=== PATIENT | female | born 1960 | race Caucasian/White ===

== ENCOUNTER 2020-08-23 16:25 | Emergency (ER) | payer BC, MEDICAID, SELFPAY ==
[2020-08-23 16:28] VITALS: BP 156/80; PULSE 99; RESP 18; TEMP 36.6; O2SAT 97; BMI 33.3
--- NOTE | 2020-08-23 18:05 | EDS_ITS ---
HPI History of Present Illness Chief Complaint: Hypertension Informant: patient Narrative Narrative: Patient is a 59-year-old female with a past medical history of hypertension, anxiety who presents to the emergency department for elevated blood pressure reading. She states that she was at her mother's house and checked her blood pressure. Systolic was in the 200s. She states that she is under a lot of stress lately. Her mother was diagnosed with a hemorrhagic stroke 2 weeks ago and her son's wedding is tomorrow. She states that she did binge drink yesterday as well. She is denying any headache, chest pain. No vision changes or issues with speech. No weakness or loss of sensation in any extremity. She does feel mildly short of breath and some tingling in her hands. No leg swelling or calf pain. She denies any history of heart attack, stroke o r DVT/PE. Patient is on lisinopril, metoprolol and hydrochlorothiazide for her blood pressure. She does take Vistaril for her anxiousness as well. PFSH [facility] Medical History (Updated 08/23/20 @ 18:[address] Lewis Medrano DO) Anxiety GERD (gastroesophageal reflux disease) Hypertension Non-Hodgkin lymphoma in remission Home Medications hydrochlorothiazide 12.5 mg PO BID 08/23/20 [History Last Taken Unknown] hydroxyzine pamoate [Vistaril] 25 mg PO BID PRN 08/23/20 [History Last Taken Unknown] lisinopril 40 mg PO DAILY 08/23/20 [History Last Taken Unknown] metoprolol tartrate 50 mg PO BID 08/23/20 [History Last Taken Unknown] pantoprazole 40 mg PO DAILY 08/23/20 [History Last Taken Unknown] Surgical History (Updated 08/23/20 @ 17:49 by Indira Pitt) H/O bilateral hip replacements Social History Smoking Status: Never smoker ROS ROS ED Constitutional Constitutional ED: Denies chills or fever(s) Eyes Eyes: Denies change in vision ENT ENT ED: Denies epistaxis or rhinorrhea Cardiovascular Cardiovascular: Denies chest pain or palpitations Respiratory/Chest Respiratory/Chest: Reports dyspnea; Denies cough Gastrointestinal Gastrointestinal: Denies abdominal pain, diarrhea, nausea or vomiting Musculoskeletal Musculoskeletal: Denies back pain or neck pain Integumentary Denies rash Neurologic Neurologic: Denies dizziness, headache(s) or weakness EXAM Physical Exam Const Vital Signs: 08/23/20 16:28 08/23/20 17:48 Temperature 97.9 F Temperature Source Temporal Pulse Rate 99 Respiratory Rate 18 Respiratory Effort Normal Respiratory Pattern Normal Blood Pressure 156/80 H Blood Pressure Mean 105 Pulse Ox 97 Oxygen Delivery Method Room Air Positive well nourished and well developed General Appearance ED: well developed and NAD HEENT Reports normocephalic, head/scalp atraumatic and moist mucous membranes Eyes PERRL and EOMs intact bilaterally Neck supple Chest Wall inspection of chest normal Resp normal respiratory effort and clear to auscultation bilaterally Auscultation: Negative for rales, rhonchi or wheezes Cardio regular rate and regular rhythm Heart Sounds: murmur GI normal to inspection, nondistended, normoactive bowel sounds and non-tender Palpation: soft; Negative for guarding or rebound tenderness present Extremity normal to inspection General Extremety ED: Negative for edema or tenderness General Extremity: Negative for edema Neuro oriented x3, CN's II-XII intact bilaterally and no sensory deficits noted Sensorium / Orientation: alert Motor Exam: strength 5/5 throughout Psych mental status grossly normal Psych Narrative: Anxiousness Skin no rashes or lesions noted MDM MDM MDM Narrative Medical decision making narrative: Patient presents to the ED for elevated blood pressure. Patient brought back to the room and her blood pressure was in the 130s over 90s. She is in no acute distress. She states that she is under a lot of stress. I believe that this is most likely situational given her son's wedding tomorrow, she did drink a lot of alcohol yesterday and her mom did suffer a hemorrhagic stroke 2 weeks ago. I do not feel any change in her medication is currently required as this is most likely situational and she will need to follow-up with her PCP for reevaluation. She develops any significant symptoms including any headache, vision changes, focal deficit, significant chest pain or shortness of breath she is to return to the ED. I did offer her something for anxiety but she states she will take her Vistaril. She her vital signs otherwise have been stable and she is satting well on room air. Lung sounds were clear on exam. This time will discharge home in stable condition. She understands and is agreeable this plan. Discharge Plan Triage Chief Complaint: Hypertension ED Provider: Lewis Medrano Dx/Rx/DC Orders Clinical Impression: Elevated blood pressure reading, Anxiousness Instructions: ED Anxiety Reaction, ED Hypertension, Established Prescriptions: No Action hydrochlorothiazide 12.5 mg Tablet 12.5 mg PO BID RF: 0 pantoprazole 40 mg Tablet,Delayed Release (Dr/Ec) 40 mg PO DAILY RF: 0 metoprolol tartrate 50 mg Tablet 50 mg PO BID RF: 0 lisinopril 40 mg Tablet 40 mg PO DAILY RF: 0 hydroxyzine pamoate [Vistaril] 25 mg Capsule 25 mg PO BID PRN (Reason: Anxiety) RF: 0 Primary Care Provider: Ziyad Rossi Referrals: Ziyad Rossi MD [Primary Care Provider] - 3-5 Days Disposition Disposition: Home, Self Care
== END 2020-08-23 18:25 | disposition home or self-care (01) ==
LOC: ED 18:11
PROVIDERS: Emergency Provider Emergency Medicine; PCP Specialist
DX: I10 Essential (primary) hypertension (principal); F41.9 Anxiety disorder, unspecified; K21.9 Gastro-esophageal reflux disease without esophagitis; Z79.899 Other long term (current) drug therapy
CPT/HCPCS: 99282

== ENCOUNTER 2024-11-18 14:32 | Inpatient (IN) | payer MEDICARE, MEDICAID, SELFPAY ==
[2024-11-18] VITALS (12 sets, daily range): BP systolic 105–150; BP diastolic 61–118; PULSE 76–91; RESP 16–25; TEMP 36.8–37.6; O2SAT 92–100; BMI 32.1; BMI 29.3
--- NOTE | 2024-11-18 15:04 | EDS_ITS ---
HPI History of Present Illness Chief Complaint: General Illness [facility] Medical History (Updated 11/18/24 @ 18:[address] Johnny Reyes MD) Non-Hodgkin lymphoma in remission Anxiety GERD (gastroesophageal reflux disease) Hypertension Home Medications ?Medication ?Instructions ?Recorded ?Last Taken ?Type hydrochlorothiazide 12.5 mg tablet 12.5 mg PO BID 11/05 Unknown History hydroxyzine pamoate 25 mg capsule 25 mg PO BID PRN Anx iety 08/23/20 Unknown History (Vistaril) lisinopril 40 mg tablet 40 mg PO DAILY 08/23/20 Unkn own History metoprolol tartrate 50 mg tablet 50 mg PO BID 08/23/20 Unknown History pantoprazole 40 mg tablet,delayed 40 mg PO DAILY 08/23 Unknown History release acyclovir 400 mg tablet 400 mg PO Q12.TCU 11/18/24 U nknown History albuterol sulfate 90 mcg/actuation 2 puff inhalation Q 4H PRN PRN 11/18/24 Unknown History aerosol inhaler wheezing buspirone 15 mg tablet PO 11/18/24 Unknown History buspirone 30 mg tablet 30 mg PO 11/18/24 Unknown Hi story clonazepam 0.5 mg tablet 0.5 mg PO TID PRN PRN anxiet y 11/18/24 Unknown History dicyclomine 20 mg tablet 20 mg PO 4X/DAY 11/18/24 Unk nown History famotidine 20 mg tablet 20 mg PO 11/18/24 Unknown Hi story fluoxetine 40 mg capsule PO 11/18/24 Unknown History fluticasone propionate 50 intranasal 11/18/24 Unknown History mcg/actuation nasal spray,suspension gabapentin 600 mg tablet 600 mg PO TID 11/18/24 Unkno wn History sucralfate 1 gram tablet 1 g PO 4X/DAY 11/18/24 Unkno wn History trazodone 50 mg tablet 50 mg PO QHS 11/18/24 Unknow n History Allergy/AdvReac Type Severity Reaction Status Date / Time morphine AdvReac Itching Verified 11/18/24 14:53 Surgical History H/O bilateral hip replacements Social History Smoking Status: Never smoker EXAM Physical Exam Const Vital Signs: 11/18/24 14:33 11/18/24 14:39 11/18/24 15:00 Temperature 98.3 F 98.3 F Temperature Source Oral Oral Pulse Rate 80 78 Respiratory Rate 18 25 H Respiratory Effort Short of Breath Blood Pressure 105/92 H 134/118 H Blood Pressure Mean 96 123 Pulse Ox 94 98 Oxygen Delivery Method Room Air Room Air 11/18/24 15:33 11/18/24 16:33 11/18/24 17:00 Temperature Temperature Source Pulse Rate 82 76 79 Respiratory Rate 16 17 18 Respiratory Effort Blood Pressure 127/80 H 124/61 H Blood Pressure Mean 95 82 Pulse Ox 100 100 100 Oxygen Delivery Method Nasal Cannula Room Air Nasal Cannula MDM MDM MDM Narrative Medical decision making narrative: HISTORY OF PRESENT ILLNESS: Chief complaint: Cough, chest pain, respiratory failure 63-year-old female history of non-Hodgkin's lymphoma, anxiety, GERD, hypertension presents with cough. Notes she was recently seen in some ER for respiratory infection. Notes she is not eating and drinking. She does note chest pain from coughing. She further states she has been sick for the last 3 weeks. She notes she lives at home alone. Her family is concerned because she is not getting around well. They report multiple falls over the last 3 weeks. Most recently several days ago. No obvious traumatic injuries result of these falls. No obvious head trauma. They note today she is more confused. She cannot remember her medications. They note she is not getting around well patient eating and drinking as result. They state patient is been having a cough complaining of chest pain. She states she has not been feeling well feels diffuse weakness. Denies focal weakness. Notes shortness of breath as well. Denies leg swelling. The patient denies recent surgery in the last 4 weeks or immobilization in the last 3 days, denies previous diagnosis of DVT or PE, hemoptysis, unilateral leg swelling or malignancy with treatment the last 6 months or palliative. No estrogen use noted. REVIEW OF SYSTEMS: Pertinent positives: Cough, decreased appetite, chest pain Pertinent negatives: As per HPI PHYSICAL EXAM: Nursing triage notes reviewed, Vital signs reviewed Constitutional: please see mdm HENT: MMM Eyes: Pupils equal round and reactive to light, Extraocular muscles intact Neck: No stridor, no JVD, full neck ROM Lungs: Clear to auscultation, No wheezing or rales. No increased work of breathing, no conversational dyspnea, no accessory muscle use, no nasal flaring. No respiratory distress noted Heart: Regular rate and rhythm, No murmurs, No rubs and No gallops, 2+ distal pulses (radial, femoral, posterior tibial) in all extremities Abdomen: Soft, there is no tenderness, rigidity, rebound or guarding, no obvious peritoneal signs, no palpable pulsatile abdominal masses, no auscultated abdominal bruit : No CVAT Extremities: No edema Neuro: No new focal neurological deficits, cranial nerves II through XII intact, 5/5 strength in all present extremities. Intact sensation to light touch in all present extremities, 2+ reflexes bilateral patella tendons. Skin: No rash or lesions noted MEDICAL DECISION MAKING: Chief Complaint: please see HPI External records reviewed: Reviewed Clinisync: COVID/RSV/flu negative on 11/09/2024 Factors affecting care: as per [facility] Social determinants of health: none History obtained from others: Family Consults: Internal medicine (Dr. Reyes) [facility] Narrative: Patient was initially hemodynamically stable, afebrile and nontoxic appearing. Exam without focus of trauma. There were slight asymmetry in auscultation. There was some rhonchi noted in the right lung barnhart there were not present left lung barnhart. Otherwise there is no rales or wheezing. There is no stigmata of VTE or CHF initial exam. I considered the following differential diagnosis: Pneumonia, viral illness, ACS, arrhythmia, anemia, PE, electrolyte abnormality, infectious encephalopathy, metabolic encephalopathy, ICH I obtained a broad lab and imaging evaluation to further determine if the patient was suffering from a life-threatening etiology. I obtained a CT of the chest given patient's history of cancer, shortness of breath and chest pain to rule out PE and to better assess if the patient had evidence of a bacterial pneumonia Initially treated/resuscitate with 15 mg of Toradol, 500 bolus and Tessalon Perles given chest pain related to cough. ALL IMAGES (IF OBTAINED) HAVE BEEN PERSONALLY REVIEWED AND INTERPRETED BY MYSELF. Initial EKG showed normal sinus rhythm rate of 79, normal axis, normal intervals, no STEMI CBC with no leukocytosis, noted mild baseline anemia, also noted t hrombocytopenia BMP without significant electrolyte disturbances, there is no sign of metabolic acidosis or endorgan hypoperfusion within normal bicarb or anion gap, there is no acute kidney injury. There is slight elevation in AST and ALT. Alk phos is normal. Liver enzyme elevation is likely not clinically significant given the patient's lack of right upper quadrant abdominal pain, scleral icterus or jaundice. High-sensitivity troponin is negative, no evidence of myocardial ischemia Urinalysis consistent with infection will send culture CT of the chest showed evidence of possible fungal pneumonia will send for respiratory culture CT scan of the brain was negative for ICH Given concerning findings and potential for infectious encephalopathy I admitted the patient to [facility] floor under Dr. eRyes Prior to admission I did treat the patient's UTI with ceftriaxone. I gave her empiric fluconazole given concern for fungal pulmonary infection. The patient and/or family, caregivers express understanding. The patient and/or family, caregivers agrees with the plan. Shared decision making: I will have a discussion with the patient and or visitors regarding risk/benefits of further testing or admission. They will be made aware of of the risk/benefits inherent in this decision they will be given the opportunity to voice understanding. Total critical care time today provided was at least 0 minutes. This excludes separately billable procedures. Critical care time (if documented) is secondary to the patient having high probability of clinically significant/life threatening deterioration in the patient's condition which required my urgent intervention. Impression: 1. Cough 2. Altered mental status 3. Diffuse weakness 4. UTI 5. Fungal pneumonia Dispo: Admit to [facility] under Dr. Medina This note was generated with [facility] dictation software. It may contain incorrect words, spelling, and punctuation that were not noted in review of the chart prior to signing. Lab Data Labs: Laboratory Results - last 24 hr 11/18/24 11/18/24 15:40 16:15 WBC 3.5 L RBC 3.25 L Hgb 10.4 L Hct 31.1 L MCV 95.7 MCH 32.0 MCHC 33.4 RDW Std Deviation 47.4 H RDW Coeff of Cesar 13.2 Plt Count 149 L MPV 12.1 H Immature Gran % (Auto) 2.000 H Neut % (Auto) 73.4 H Lymph % (Auto) 12.6 L [place] % (Auto) 10.9 H Eos % (Auto) 0.0 Baso % (Auto) 1.1 H Absolute Neuts (auto) 2.6 Absolute Lymphs (auto) 0.44 L Nucleated RBC % 0 Differential Comment SCANNED Platelet Estimate SLT DEC Sodium 134 Potassium 3.6 Chloride 97 L Carbon Dioxide 23.5 Anion Gap 14 BUN 14 Creatinine 0.78 Est GFR (MDRD) Non-Af 86 BUN/Creatinine Ratio 17.4 Glucose 125 H Lactic Acid 1.2 Calcium 9.0 Total Bilirubin 0.42 AST 119 H ALT 62 H Alkaline Phosphatase 101 Troponin T High Sens 12 Total Protein 6.4 Albumin 3.3 L Globulin 3.1 Albumin/Globulin Ratio 1.1 Urine Color Straw Urine Clarity Clear Urine pH 6.0 Ur Specific [place] 1.005 Urine Protein 30 H Urine Glucose (UA) Normal Urine Ketones Negative Urine Occult Blood 150 H Urine Nitrite Positive H Urine Bilirubin Negative Urine Urobilinogen Normal Ur Leukocyte Esterase 25 H Urine RBC 0-5 SEEN Urine WBC 5-10 SEEN Ur Squamous Epith Cells 0-5 SEEN Urine Bacteria 4+ Urine Mucus 0 SEEN Radiography Diagnostic Testing: Clinical Impression(s) from Imaging Studies Brain CT 11/18/24 15:25 IMPRESSION: 1. No intracranial hemorrhage. No mass effect or midline shift. 2. Chronic involutional and ischemic gliotic white matter changes. 3. Bilateral maxillary sinusitis with layering fluid levels. Reading Location: [facility] Chest CTA 11/18/24 15:26 IMPRESSION: 1. Negative for pulmonary embolus. 2. Abnormal micronodular pattern with interstitial prominence throughout both lungs with fungal disease not excluded among other etiologies. Recommend pulmonary consultation Reading Location: [facility] Discharge Plan Triage Chief Complaint: General Illness ED Provider: Irwin Lester Dx/Rx/DC Orders Primary Care Provider: ORALIA SANABRIA
--- NOTE | 2024-11-18 15:25 | CT_ITS ---
PROCEDURE: BRAIN/HEAD WITHOUT CONTRAST 11/18/2024 REASON FOR EXAM: ALTERED MENTAL STATUS TECHNIQUE: Procedure Code: CTBR Modality: CT Procedure: BRAIN/HEAD WITHOUT CONTRAST Coronal and Sagittal reconstruction series were provided. One or more dose reduction techniques were used (e.g., Automated exposure control, adjustment of the mA and/or kV according to patient size, use of iterative reconstruction technique. COMPARISON: None available. FINDINGS: There is no extra-axial or intra-axial intracranial hemorrhage. No mass effect or midline shift is seen. Generalized intracranial volume loss and findings compatible with chronic microvascular white matter ischemia. There is normal gonzalez-white matter differentiation. The posterior fossa is grossly unremarkable. The skull is unremarkable. Layering opacification of the bilateral maxillary sinuses. The remaining visualized paranasal sinuses are clear. The mastoid air cells show normal translucency. CT/Brain/Head without Contrast IMPRESSION: 1. No intracranial hemorrhage. No mass effect or midline shift. 2. Chronic involutional and ischemic gliotic white matter changes. 3. Bilateral maxillary sinusitis with layering fluid levels. Reading [facility]
--- NOTE | 2024-11-18 15:25 | EKG12_ITS ---
Test Reason : GEN ILLNESS Blood Pressure : */* mmHG Vent. Rate : 79 BPM Atrial Rate : 79 BPM P-R Int : 138 ms QRS Dur : 82 ms QT Int : 402 ms P-R-T Axes : 67 51 56 degrees QTcB Int : 460 ms Normal sinus rhythm Normal ECG Confirmed by ANANDA MONTES, DANO ([id number]), staff editor DILLAN JONAS ([id number]) on 11/20/2024 8:34:54 AM Referred By: LOKI Confirmed By: DANO MALAVE MD
--- NOTE | 2024-11-18 15:26 | CT_ITS ---
PROCEDURE: CTA CHEST W/WO CONTRAST 11/18/2024 REASON FOR EXAM: SOB, CP HX OF CA R/O PE VS PNA TECHNIQUE: Procedure Code: [id number] Modality: CT Procedure: CTA CHEST W/WO CONTRAST Multiplanar Sagittal and Coronal images were obtained. 3D reconstructions CONTRAST: Isovue 370 VOLUME: 100 mL One or more dose reduction techniques were used (e.g., Automated exposure control, adjustment of the mA and/or kV according to patient size, use of iterative reconstruction technique). FINDINGS: No lung windows are supplied. Normal caliber thoracic aorta without aneurysm or dissection. Mild coronary artery calcification. No evidence of pulmonary emboli. No mediastinal mass. Normal axilla. Normal chest wall. Mild pericardial effusion. Upper abdomen demonstrates prior gastric surgery. There is a diffusely abnormal micronodular pattern throughout both lungs with areas of moderate interstitial thickening diffusely and areas of ground-glass opacity near the left and right upper lobes. CT/CTA Chest W/WO Contrast IMPRESSION: 1. Negative for pulmonary embolus. 2. Abnormal micronodular pattern with interstitial prominence throughout both l ungs with fungal disease not excluded among other etiologies. Recommend pulmonary consultation Reading [facility]
[2024-11-18] MEDS: 0.9% Normal Saline (500mL Bag) 500 ML 1000 ML IV (15:59)
[2024-11-18 16:05] LABS: Hematocrit 31.1 % (37-47); Hemoglobin 10.4 g/dL (12.0-15.0); Immature Granulocytes Count 0.070 X10^3/uL (0.0-0.0); Mean Corp Hgb Conc 33.4 g/dL (32-36); Mean Corpuscular Volume 95.7 fL (81-99); Mean Platelet Vol. 12.1 fl (6.2-12.0); NRBC Flagged by Analyzer 0 % (0-5); POSITIVE DIFFERENTIAL YES; POSITIVE MORPHOLOGY YES; Platelet Count 149 K/mm3 (150-450); RBC Distribution Width CV 13.2 % (11.6-14.6); RBC Distribution Width SD 47.4 fl (35.1-43.9); Red Blood Count 3.25 M/mm3 (4.2-5.4); White Blood Count 3.5 K/mm3 (4.4-11.0)
[2024-11-18 16:13] LABS: Differential Indicated SCAN CRITERIA MET
[2024-11-18 16:16] LABS: AST(SGOT) 119 U/L (<=31); Alanine Aminotransfer ALT/SGPT 62 U/L (<=34); Albumin, Serum 3.3 g/dL (3.4-4.8); Alkaline Phosphatase 101 U/L (35-104); Anion Gap 14 (5-15); BUN 14 mg/dL (4-19); BUN/Creat Ratio 17.4 RATIO (10-20); Calcium,Total 9.0 mg/dL (7.6-11.0); Carbon Dioxide 23.5 mmol/L (21.0-32.0); Chloride 97 mmol/L (98-108); Globulin 3.1 g/dL (2.2-4.2); Glucose 125 mg/dL (70-99); Potassium 3.6 mmol/L (3.3-5.1); Troponin T High Sensitivity 12 ng/L (<=14)
[2024-11-18 16:22] LABS: Mucous, Urine 0 SEEN /hpf (<or=2+)
[2024-11-18 16:32] LABS: Glucose, Dipstick Normal (Normal); Ketone-Dipstick Negative (Negative); Leukocyte Esterase-Dipstick 25 /ul (Negative); Nitrite-Dipstick Positive (Negative); Occult Blood-Urine 150 /ul (Negative); Protein-Dipstick 30 mg/dl (Negative); Specific Gravity, Urine 1.005 (1.002-1.030); Urine Bilirubin Dipstick Negative (Negative)
[2024-11-18 16:58] LABS: Color, Urine Straw (Yellow)
[2024-11-18 17:01] LABS: Differential Comment SCANNED
--- NOTE | 2024-11-18 18:10 | HP.PCM.HOS_ITS ---
HPI - General General Date of Admission: 11/18/24 Date of Service: 11/18/24 Chief Complaint: Generalized weak HPI Narrative CURLY BROWN, is a 63 F who with past medical history significant for non- Hodgkin's lymphoma currently in remission, essential hypertension who was recently evaluated at a facility in [place] for upper respiratory tract infection. Patient was apparently seen in the ED discharged home on Zithromax. Per patient she has not really recovered to her baseline since she was evaluated. She has experienced progressive generalized weakness. She also did complain of some shortness of breath as well as subjective fever and chills. Presented to the emergency department as a result. Her urinalysis came back abnormal consistent with UTI. CT of the chest obtained did show abnormal micronodular pattern with interstitial prominence throughout both lungs. Per radiologist found disease could not be ruled out. Patient did receive fluconazole and subsequently admitted to regular nursing floor for further management [facility] Medical History (Updated 11/18/24 @ 18:[address] Johnny Reyes MD) Non-Hodgkin lymphoma in remission Anxiety GERD (gastroesophageal reflux disease) Hypertension Home Medications ?Medication ?Instructions ?Recorded ?Last Taken ?Type hydrochlorothiazide 12.5 mg tablet 12.5 mg PO BID 11/05 Unknown History hydroxyzine pamoate 25 mg capsule 25 mg PO BID PRN Anx iety 08/23/20 Unknown History (Vistaril) lisinopril 40 mg tablet 40 mg PO DAILY 08/23/20 Unkn own History metoprolol tartrate 50 mg tablet 50 mg PO BID 08/23/20 Unknown History pantoprazole 40 mg tablet,delayed 40 mg PO DAILY 08/23 Unknown History release acyclovir 400 mg tablet 400 mg PO Q12.TCU 11/18/24 U nknown History albuterol sulfate 90 mcg/actuation 2 puff inhalation Q 4H PRN PRN 11/18/24 Unknown History aerosol inhaler wheezing buspirone 15 mg tablet PO 11/18/24 Unknown History buspirone 30 mg tablet 30 mg PO 11/18/24 Unknown Hi story clonazepam 0.5 mg tablet 0.5 mg PO TID PRN PRN anxiet y 11/18/24 Unknown History dicyclomine 20 mg tablet 20 mg PO 4X/DAY 11/18/24 Unk nown History famotidine 20 mg tablet 20 mg PO 11/18/24 Unknown Hi story fluoxetine 40 mg capsule PO 11/18/24 Unknown History fluticasone propionate 50 intranasal 11/18/24 Unknown History mcg/actuation nasal spray,suspension gabapentin 600 mg tablet 600 mg PO TID 11/18/24 Unkno wn History sucralfate 1 gram tablet 1 g PO 4X/DAY 11/18/24 Unkno wn History trazodone 50 mg tablet 50 mg PO QHS 11/18/24 Unknow n History Allergy/AdvReac Type Severity Reaction Status Date / Time morphine AdvReac Itching Verified 11/18/24 14:53 Surgical History H/O bilateral hip replacements Social History Smoking Status: Never smoker ROS ROS Narrative GENERAL: Subjective fever and chills HEENT: denies headache, sinus congestion, or drainage, dysphagia RESPIRATORY: shortness of breath, dyspnea on exertion CARDIAC: denies chest pain, palpitations, orthopnea, PND GASTROINTESTINAL: denies abdominal pain, nausea, vomiting, melena, GENITOURINARY: denies dysuria, urgency, frequency, heamaturia EXTREMITY: denies swelling MUSCULOSKELETAL: denies current joint pain or tenderness NEUROLOGIC: denies focal numbness, weakness, tingling HEMATOLOGIC: denies easy bruising and/or hemorrhage INTEGUMENT: denies rashes PSYCHIATRIC: denies suicidal or homicidal ideation Vital Signs Vital Signs Vital Signs: 11/18/24 14:33 11/18/24 14:39 11/18/24 15:00 Temperature 98.3 F 98.3 F Temperature Source Oral Oral Pulse Rate 80 78 Respiratory Rate 18 25 H Respiratory Effort Short of Breath Blood Pressure 105/92 H 134/118 H Blood Pressure Mean 96 123 Pulse Ox 94 98 Oxygen Delivery Method Room Air Room Air Oxygen Flow Rate (L/min) 11/18/24 15:33 11/18/24 16:33 11/18/24 17:00 Temperature Temperature Source Pulse Rate 82 76 79 Respiratory Rate 16 17 18 Respiratory Effort Blood Pressure 127/80 H 124/61 H Blood Pressure Mean 95 82 Pulse Ox 100 100 100 Oxygen Delivery Method Nasal Cannula Room Air Nasal Cannula Oxygen Flow Rate (L/min) 11/18/24 18:00 Temperature Temperature Source Pulse Rate 77 Respiratory Rate 18 Respiratory Effort Blood Pressure 126/81 H Blood Pressure Mean 96 Pulse Ox 95 Oxygen Delivery Method Nasal Cannula Oxygen Flow Rate (L/min) 2 Physical Exam Narrative GENERAL: Patient appears ill looking HEENT: Atraumatic; normocephalic EYES; Anicteric, Normal Conjunctiva NECK; supple, normal thyroid, RESPIRATORY: Diminished to auscultation CARDIOVASCULAR: Regular S1 S2, GI: soft, normoactive bowel sounds, : No Renal angle tenderness; EXTREMITIES: No edema, no clubbing, MUSCULOSKELETAL: no muscle wasting NEURO: Awake; no lateralizing signs. SKIN: No Rash PSYCH; Flat affect Results Lab / Micro Data 11/18/24 15:40 11/18/24 15:40 Labs: Laboratory Results - last 24 hr 11/18/24 15:40: WBC 3.5 L, RBC 3.25 L, Hgb 10.4 L, Hct 31.1 L, MCV 95.7, MCH 32.0, MCHC 33.4, RDW Std Deviation 47.4 H, RDW Coeff of Cesar 13.2, Plt Count 149 L, MPV 12.1 H, Immature Gran % (Auto) 2.000 H, Neut % (Auto) 73.4 H, Lymph % (Auto) 12.6 L, G[place]pie % (Auto) 10.9 H, Eos % (Auto) 0.0, Baso % (Auto) 1.1 H, Absolute Neuts (auto) 2.6, Absolute Lymphs (auto) 0.44 L, Nucleated RBC % 0, Differential Comment SCANNED, Platelet Estimate SLT DEC, Sodium 134, Potassium 3.6, Chloride 97 L, Carbon Dioxide 23.5, Anion Gap 14, BUN 14, Creatinine 0.78, Est GFR (MDRD) Non-Af 86, BUN/Creatinine Ratio 17.4, Glucose 125 H, Lactic Acid 1.2, Calcium 9.0, Total Bilirubin 0.42, AST 119 H, ALT 62 H, Alkaline Phosphatase 101, Troponin T High Sens 12, Total Protein 6.4, Albumin 3.3 L, Globulin 3.1, Albumin/Globulin Ratio 1.1 11/18/24 16:15: Urine Color Straw, Urine Clarity Clear, Urine pH 6.0, Ur Specific [place] 1.005, Urine Protein 30 H, Urine Glucose (UA) Normal, Urine Ketones Negative, Urine Occult Blood 150 H, Urine Nitrite Positive H, Urine Bilirubin Negative, Urine Urobilinogen Normal, Ur Leukocyte Esterase 25 H Imaging Radiology Impression Brain CT 11/18/24 15:25 IMPRESSION: 1. No intracranial hemorrhage. No mass effect or midline shift. 2. Chronic involutional and ischemic gliotic white matter changes. 3. Bilateral maxillary sinusitis with layering fluid levels. [facility] Chest CTA 11/18/24 15:26 IMPRESSION: 1. Negative for pulmonary embolus. 2. Abnormal micronodular pattern with interstitial prominence throughout both lungs with fungal disease not excluded among other etiologies. Recommend pulmonary consultation Reading Location: [facility] Assessment & Plan Assessment/Plan (1) Acute cystitis: PLAN: Plan Patient is a 63-year-old female presenting with progressive generalized weakness with subjective fever and chills. An assessment of acute cystitis made admitted to regular nursing floor for further management 1. Acute cystitis ? Patient was started on ceftriaxone. Urine culture sent plan is to either continue with current antibiotic therapy or adjust based on sensitivity result 2. Abnormal CAT scan ? CT obtained was negative for PE however did show abnormal micronodular pattern with interstitial prominence throughout both lungs with fungal disease not excluded among other etiologies.. Patient did receive fluconazole in the ED admitted to regular nursing floor deferred with continuation of antibiotic therapy however ordered for viral respiratory panel strep and Legionella urine antigen, histoplasmosis antigen Mycoplasma antigen as well as cryptococcus antigen. Consult was placed to ID on admission 3. Non-Hodgkin's lymphoma ? Patient apparently in remission 4. Hypertension ? Blood pressure controlled, home medications continued with dose adjustment as needed 5. Depression with anxiety ? Plan is to continue patient home meds following med rec 6. GERD ? On PPI 7. Peripheral neuropathy ? Patient is on gabapentin 8. Mild thrombocytopenia ? Will monitor with daily CBC with differential 9. DVT prophylaxis ? Started on Lovenox. Will monitor closely given patient low platelet count Time spent in the patient's overall evaluation,decision-making process, review of diagnostic data, adjustment of management, discussion with other providers, nursing nursing and ancillary staff involved in patient's care documentation, 75 minutes Advance planning; did discuss withpatient regarding advanced directives as well as CODE STATUS. Did explain the various scenarios involved ( FULL CODE, DNR CCA, DNR CCA with no intubation, and DNR CC and what each meant) patient elected elected to remain full code with CPR and intubation. Order was placed. Time spent on discussion 16 minutes. Charges/Coding Multi Select Codes Visit Charges Visit Charges: 50152 Init Hosp Hospitalists' Procedures Procedures: 03576 Advncd Care Plan 30 Min
[2024-11-18 18:33] LABS: Red Blood Cells-Urine 0-5 SEEN /hpf (0-5); Squamous Epithelial Cells - UA 0-5 SEEN /hpf (5-10)
[2024-11-18 19:01] LABS: Troponin T High Sens 2 HR 10 ng/L (<=14)
[2024-11-18] MEDS: Fluconazole IVPB 400 MG/200 ML BAG 100 MG IV (19:02)
[2024-11-18] MEDS: guaiFENesin 10 ML UDC (200MG/10ML) 20 ML PO (20:07)
[2024-11-18 20:57] LABS: Troponin T High Sens 4 HR 11 ng/L (<=14)
[2024-11-18] MEDS: 0.9% Normal Saline (1000mL) 1,000 ML 150 ML IV (21:35)
[2024-11-18] MEDS: MELATONIN 3 MG TABLET PO (21:41)
[2024-11-18] MEDS: 0.9% Saline Lock 10 ML Syringe IV (21:41)
[2024-11-19] VITALS (12 sets, daily range): BP systolic 98–165; BP diastolic 63–86; PULSE 83–94; RESP 18–28; TEMP 36.7–37.7; O2SAT 90–100; BMI 29.6
[2024-11-19] MEDS: guaiFENesin 10 ML UDC (200MG/10ML) 20 ML PO ×4 (00:03→21:13)
--- NOTE | 2024-11-19 02:12 | PN.HOSP_ITS ---
Hospitalist Note Respiratory panel with positive rhinovirus.
--- NOTE | 2024-11-19 02:12 | PCM.HOSP.N ---
Hospitalist Note Respiratory panel with positive rhinovirus.
[2024-11-19] MEDS: 0.9% Normal Saline (1000mL) 1,000 ML 150 ML IV ×2 (04:14→11:57)
[2024-11-19] MEDS: Albuterol 2.5 MG/3 ML VIAL.NEB. INHALATION ×2 (04:51→21:26)
[2024-11-19 04:53] LABS: Hematocrit 28.6 % (37-47); Hemoglobin 9.4 g/dL (12.0-15.0); Immature Granulocytes Count 0.080 X10^3/uL (0.0-0.0); Mean Corp Hgb Conc 32.9 g/dL (32-36); Mean Corpuscular Volume 98.6 fL (81-99); Mean Platelet Vol. 11.6 fl (6.2-12.0); NRBC Flagged by Analyzer 0 % (0-5); POSITIVE DIFFERENTIAL YES; POSITIVE MORPHOLOGY YES; Platelet Count 123 K/mm3 (150-450); RBC Distribution Width CV 13.4 % (11.6-14.6); RBC Distribution Width SD 48.1 fl (35.1-43.9); Red Blood Count 2.90 M/mm3 (4.2-5.4); White Blood Count 4.2 K/mm3 (4.4-11.0)
[2024-11-19 05:25] LABS: AST(SGOT) 82 U/L (<=31); Alanine Aminotransfer ALT/SGPT 53 U/L (<=34); Albumin, Serum 2.8 g/dL (3.4-4.8); Alkaline Phosphatase 89 U/L (35-104); Anion Gap 14 (5-15); BUN 10 mg/dL (4-19); BUN/Creat Ratio 13.8 RATIO (10-20); Bilirubin, Direct 0.15 mg/dL (0.00-0.30); Calcium,Total 8.1 mg/dL (7.6-11.0); Carbon Dioxide 20.4 mmol/L (21.0-32.0); Chloride 102 mmol/L (98-108); Estimated Creatinine Clearance 82.38 ml/min (50-250); Globulin 2.6 g/dL (2.2-4.2); Glucose 136 mg/dL (70-99); Magnesium 2.2 mg/dL (1.5-2.2); Potassium 4.0 mmol/L (3.3-5.1)
--- NOTE | 2024-11-19 07:49 | PCM.PN.HOSP ---
Reason for Visit Chief Complaint: Generalized weak Subjective Subjective Patient was admitted with multiple complaints including generalized weakness subjective fever and chills as well as shortness of breath. Was found to have acute cystitis. Patient was found to have abnormal chest x-ray viral respiratory panel came back positive for acute rhinovirus infection.. Patient seen this morning still has a persistent cough and has been wheezing on auscultation of her chest Objective Data Objective Data Vital Signs: Vital Signs Temp Pulse Resp BP Pulse Ox O2 Del Method O2 Flow Rate 99 F 83 24 H 131/86 H 90 Nasal Cannula 2 11/19/24 06:36 11/19/24 06:36 11/19/24 06:36 11/19/24 06:36 11/19/24 07:30 11/19/24 07:30 11/19/24 07:30 Oxygen Flow Rate (L/min) 2 Oxygen Delivery Method Nasal Cannula Weight: 78.8 kg Body Mass Index (BMI) 29.6 Intake & Output: Intake and Output for Last 24 Hours 11/17/24 11/18/24 11/19/24 23:59 23:59 23:59 Intake Total 950 / 950 1197.5 / 1197.5 Balance 950 / 950 1197.5 / 1197.5 Lab / Micro Data 11/19/24 04:25 11/19/24 04:25 Labs: Laboratory Results - last 24 hr 11/18/24 15:40: WBC 3.5 L, RBC 3.25 L, Hgb 10.4 L, Hct 31.1 L, MCV 95.7, MCH 32.0, MCHC 33.4, RDW Std Deviation 47.4 H, RDW Coeff of Cesar 13.2, Plt Count 149 L, MPV 12.1 H, Immature Gran % (Auto) 2.000 H, Neut % (Auto) 73.4 H, Lymph % (Auto) 12.6 L, [place] % (Auto) 10.9 H, Eos % (Auto) 0.0, Baso % (Auto) 1.1 H, Absolute Neuts (auto) 2.6, Absolute Lymphs (auto) 0.44 L, Nucleated RBC % 0, Differential Comment SCANNED, Platelet Estimate SLT DEC, Sodium 134, Potassium 3.6, Chloride 97 L, Carbon Dioxide 23.5, Anion Gap 14, BUN 14, Creatinine 0.78, Est GFR (MDRD) Non-Af 86, BUN/Creatinine Ratio 17.4, Glucose 125 H, Lactic Acid 1.2, Calcium 9.0, Total Bilirubin 0.42, AST 119 H, ALT 62 H, Alkaline Phosphatase 101, Troponin T High Sens 12, Total Protein 6.4, Albumin 3.3 L, Globulin 3.1, Albumin/Globulin Ratio 1.1 11/18/24 16:15: Urine Color Straw, Urine Clarity Clear, Urine pH 6.0, Ur Specific [place] 1.005, Urine Protein 30 H, Urine Glucose (UA) Normal, Urine Ketones Negative, Urine Occult Blood 150 H, Urine Nitrite Positive H, Urine Bilirubin Negative, Urine Urobilinogen Normal, Ur Leukocyte Esterase 25 H, Urine RBC 0-5 SEEN, Urine WBC 5-10 SEEN, Ur Squamous Epith Cells 0-5 SEEN, Urine Bacteria 4+, Urine Mucus 0 SEEN 11/18/24 18:15: Troponin T Hi Sens 2 Hr 10 11/18/24 20:30: Troponin T Hi Sens 4Hr 11 11/19/24 04:25: WBC 4.2 L, RBC 2.90 L, Hgb 9.4 L, Hct 28.6 L, MCV 98.6, MCH 32.4 H, MCHC 32.9, RDW Std Deviation 48.1 H, RDW Coeff of Cesar 13.4, Plt Count 123 L, MPV 11.6, Immature Gran % (Auto) 1.900 H, Neut % (Auto) 76.4 H, Lymph % (Auto) 10.5 L, [place] % (Auto) 9.5, Eos % (Auto) 0.0, Baso % (Auto) 1.7 H, Absolute Neuts (auto) 3.2, Absolute Lymphs (auto) 0.44 L, Nucleated RBC % 0, Sodium 136, Potassium 4.0, Chloride 102, Carbon Dioxide 20.4 L, Anion Gap 14, BUN 10, Creatinine 0.71, Estim Creat Clear Calc 82.38, Est GFR (MDRD) Non-Af 95, BUN/Creatinine Ratio 13.8, Glucose 136 H, Calcium 8.1, Phosphorus 3.5, Magnesium 2.2, Total Bilirubin 0.23, Direct Bilirubin 0.15, AST 82 H, ALT 53 H, Alkaline Phosphatase 89, Total Protein 5.4 L, Albumin 2.8 L, Globulin 2.6, TSH 0.461 Micro: Microbiology 11/18/24 19:51 Mucosa - Nasopharyngeal Respiratory Panel (PCR) - Final Rhinovirus 11/18/24 19:51 Mucosa - Nose Coronavirus COVID-19 PCR - Final 11/18/24 16:15 Urine, Clean Catch Legionella Antigen - Final 11/18/24 16:15 Urine, Clean Catch Streptococcus pneumoniae Antigen (M - Final 11/18/24 15:40 Mucosa - Nose SARS-CoV-2, Influenza & RSV (PCR) - Final Radiography Diagnostic Testing: Radiology Impression Brain CT 11/18/24 15:25 IMPRESSION: 1. No intracranial hemorrhage. No mass effect or midline shift. 2. Chronic involutional and ischemic gliotic white matter changes. 3. Bilateral maxillary sinusitis with layering fluid levels. Reading Location: [facility] Chest CTA 11/18/24 15:26 IMPRESSION: 1. Negative for pulmonary embolus. 2. Abnormal micronodular pattern with interstitial prominence throughout both lungs with fungal disease not excluded among other etiologies. Recommend pulmonary consultation Reading Location: [facility] Physical Exam Narrative GENERAL: Patient appears ill looking HEENT: Atraumatic; normocephalic EYES; Anicteric, Normal Conjunctiva NECK; supple, normal thyroid, RESPIRATORY: Diminished to auscultation? Bilateral wheezes CARDIOVASCULAR: Regular S1 S2, GI: soft, normoactive bowel sounds, : No Renal angle tenderness; EXTREMITIES: No edema, no clubbing, MUSCULOSKELETAL: no muscle wasting NEURO: Awake; no lateralizing signs. SKIN: No Rash PSYCH; Flat affect Assessment & Plan Assessment/Plan (1) Acute cystitis: PLAN: Plan Patient is a 63-year-old female presenting with progressive generalized weakness with subjective fever and chills. An assessment of acute cystitis made admitted to regular nursing floor for further management 1. Acute cystitis ? Patient was started on ceftriaxone. Urine culture sent plan is to either continue with current antibiotic therapy or adjust based on sensitivity result ? 11/19/2024; continued with patient ceftriaxone pending culture results 2. Abnormal CAT scan ? CT obtained was negative for PE however did show abnormal micronodular pattern with interstitial prominence throughout both lungs with fungal disease not excluded among other etiologies.. Patient did receive fluconazole in the ED admitted to regular nursing floor deferred with continuation of antibiotic therapy however ordered for viral respiratory panel strep and Legionella urine antigen, histoplasmosis antigen Mycoplasma antigen as well as cryptococcus antigen. Consult was placed to ID on admission 3. Acute rhinovirus infection ? Auscultation did reveal bilateral wheezes. Bronchodilator treatment added to patient treatment regimen in addition to symptom management 4. Non-Hodgkin's lymphoma ? Patient apparently in remission 5. Hypertension ? Blood pressure controlled, home medications continued with dose adjustment as needed 6. GERD ? On PPI 7. Peripheral neuropathy ? Patient is on gabapentin 8. Mild thrombocytopenia ? Will monitor with daily CBC with differential 9. Depression with anxiety ? Continue with patient home meds 10. DVT prophylaxis ? Started on Lovenox. Will monitor closely given patient low platelet count ? 11/19/2024; discontinue Lovenox given further drop in patient platelet count Time spent in the patient's overall evaluation,decision-making process, review of diagnostic data, adjustment of management, discussion with other providers, nursing nursing and ancillary staff involved in patient's care documentation,50 minutes Charges/Coding Visit Charges Inpatient E&M: 42972 [facility] L3
[2024-11-19] MEDS: Fluticasone 0.05% 1 SPRAY NASAL.SRY NASAL ×2 (09:22→20:48)
[2024-11-19] MEDS: Ceftriaxone 2 GM in 0.9% Normal Saline (50mL MB+) 50 ML IV (09:23)
[2024-11-19] MEDS: 0.9% Saline Lock 10 ML Syringe IV ×2 (09:32→21:14)
[2024-11-19] MEDS: Azithromycin 500 MG in 0.9% Normal Saline (250mL Bag) 250 ML 250 MG IV (10:11)
[2024-11-19] MEDS: MELATONIN 3 MG TABLET PO (20:46)
[2024-11-20] VITALS (13 sets, daily range): BP systolic 107–140; BP diastolic 67–85; PULSE 85–94; RESP 16–24; TEMP 36.9–38.4; O2SAT 90–97
[2024-11-20] MEDS: guaiFENesin 10 ML UDC (200MG/10ML) 20 ML PO ×3 (01:55→20:44)
[2024-11-20 06:51] LABS: Hematocrit 27.7 % (37-47); Hemoglobin 8.9 g/dL (12.0-15.0); Mean Corp Hgb Conc 32.1 g/dL (32-36); Mean Corpuscular Volume 99.6 fL (81-99); Mean Platelet Vol. 12.1 fl (6.2-12.0); POSITIVE COUNT YES; POSITIVE DIFFERENTIAL YES; POSITIVE MORPHOLOGY YES; Platelet Count 118 K/mm3 (150-450); RBC Distribution Width CV 13.4 % (11.6-14.6); RBC Distribution Width SD 49.1 fl (35.1-43.9); Red Blood Count 2.78 M/mm3 (4.2-5.4); White Blood Count 3.0 K/mm3 (4.4-11.0)
[2024-11-20 06:55] LABS: Differential Indicated MANUAL DIFF
[2024-11-20 07:23] LABS: Anion Gap 14 (5-15); BUN 7 mg/dL (4-19); BUN/Creat Ratio 11.2 RATIO (10-20); Calcium,Total 8.2 mg/dL (7.6-11.0); Carbon Dioxide 20.3 mmol/L (21.0-32.0); Chloride 103 mmol/L (98-108); Estimated Creatinine Clearance 94.33 ml/min (50-250); Glucose 130 mg/dL (70-99); Potassium 3.5 mmol/L (3.3-5.1)
[2024-11-20 07:59] LABS: Neutrophil-Band 1 % (0-5); Neutrophil-Segmented 73 % (47-70); Total Cells Counted 100 (MANUAL DIFF)
[2024-11-20 08:01] LABS: Red Cell Morphology NORM C+C NORMAL (NORM C&C)
[2024-11-20] MEDS: 0.9% Saline Lock 10 ML Syringe IV (10:13)
[2024-11-20] MEDS: Fluticasone 0.05% 1 SPRAY NASAL.SRY NASAL ×2 (10:14→20:42)
[2024-11-20] MEDS: Ceftriaxone 2 GM in 0.9% Normal Saline (50mL MB+) 50 ML IV (10:14)
--- NOTE | 2024-11-20 11:10 | CASEMGMT ---
SUNDAY LINDER Assessment: Face to Face with pt for initial transition planning/care coordination assessment. SUNDAY LINDER introduced self and role at [facility], pt voices understanding and consents to assessment. Pt is A&O x4 and answers all questions appropriately at this time. Pt sitting up in chair in no distress. Care providers, pharmacy, and demographics verified/updated. Admitting Dx: acute metabolic encephalopathy and UTI Strata Score: 1 PCP:Cristiana Specialists:doreen Foreman Preferred Pharmacy: [facility] [address] in [place] Insurance: [facility] Dual Complete, [facility] Prescription Benefit: yes LNOK: Dayne Ovalle, son; Silvino Ovalle, son Living Arrangements: Pt lives alone in a single story home with 1 step to enter with a rail. Pt reports up to 3 wks ago she was I in ADL/IADLs. Pt states since she has had this resp illness, she has had no energy at home and was not able to keep up with housekeeping tasks. Pt obtaines her groceries online and has them delivered. Transportation: Pt drives self and denies concerns with transportation. DME:FWW, HHS, shower chair, grab bars in the bathroom HHC/SNF: Pt states she recently had HHC but could not recall the name of the agency. Pt denies SNF stays. Pt states no concerns with going home at time of dc. Pt states she does feel weak and thinks HHC would be beneficial to her again. She states she can not remember the name of the agency. Pt aware that a list will be provided to her of options and she can select her top 3. Discussed having SN, PT and OT for HHC. Pt states her sons have been dealing with her illness for the last 5 years and they are sick of it. She states they have their own lives and she cannot depend on them. Pt states no further concerns/needs. CM to follow. Advised pt to ask CM if any further questions/concerns/needs arise, voices understanding. Pt Goal: Home with HHC Plan: Home with HHC Requested dc senior office assistant deliver list and obtain choices. Kathie BRAND CM
--- NOTE | 2024-11-20 12:25 | CASEMGMT ---
Discharge Planning A list of?HH providers including quality and resource use data and consistent with the patient's preferred geographic region, medical needs, and insurance network was created in [employer] Guide.? This list was provided to the patient with request to select her top 3 choices. Iza Ashraf, Discharge Planning Asst.
--- NOTE | 2024-11-20 13:59 | CON.PCM.ID_ITS ---
Assessment & Plan Assessment/Plan (1) Rhinovirus: PLAN: CT showed some nodules and interstitial lung disease. Urine Ags neg. Sputum cx pending. UA minimal wbcs but ucx with heavy growth klebs pneumo. Fungal studies pending. Has h/o NHL in remission. Is lymphopenic here and wbc is decreasing. CBC with diff planned for AM. Not on O2 currently. If resp status does not improve, would consult pulm. If counts worsen, may need heme eval. Cont empiric azithro/ceftriaxone for now. Will follow, thank you (2) Acute cystitis: HPI Consult Data Date of Consult: 11/20/24 HPI Narrative Reason for Consultation: pneumonia HPI Narrative: CURLY BROWN, is a 63 F with h/o NHL in remission, presented with 3 weeks dry cough, dyspnea, congestion, body aches, not feeling well. Seen at OSH, sent home from ED with azithro. Ongoing fatigue, chills. Came to ED here 11/18, admitted on azithro and ceftriaxone. Rhinovirus (+). Not feeling any better. Full ROS performed and neg except as noted above. [facility]LY [facility], [facility] Medical History Non-Hodgkin lymphoma in remission Anxiety GERD (gastroesophageal reflux disease) Hypertension Home Medications ?Medication ?Instructions ?Recorded ?Last Taken ?Type hydrochlorothiazide 12.5 mg tablet 12.5 mg PO BID bp 0 08/23/20 Unknown History Held on 11/18/24. Instructions: Order Changed hydroxyzine pamoate 25 mg capsule 25 mg PO BID PRN Anx iety 08/23/20 Unknown History (Vistaril) lisinopril 40 mg tablet 40 mg PO DAILY 08/23/20 Unkn own History pantoprazole 40 mg tablet,delayed 40 mg PO DAILY 08/23 Unknown History release acyclovir 400 mg tablet 400 mg PO Q12.TCU 11/18/24 U nknown History albuterol sulfate 90 mcg/actuation 2 puff inhalation Q 4H PRN PRN 11/18/24 Unknown History aerosol inhaler wheezing buspirone 15 mg tablet 15 mg PO 4X/DAY Anxiety 06/09 Unknown History clonazepam 0.5 mg tablet 0.5 mg PO TID anxiety Unknown History dicyclomine 20 mg tablet 20 mg PO 4X/DAY 11/18/24 Unk nown History famotidine 20 mg tablet 20 mg PO BID GERD 11/18/24 U nknown History fluoxetine 40 mg capsule 80 mg PO DAILY PTSD 11/18/24 Unknown History fluticasone propionate 50 1 spray intranasal Q12H alva rgies 11/18/24 Unknown History mcg/actuation nasal spray,suspension gabapentin 600 mg tablet 600 mg PO TID 11/18/24 Unkno wn History sucralfate 1 gram tablet 1 g PO 4X/DAY 11/18/24 Unkno wn History trazodone 50 mg tablet 50 mg PO QHS 11/18/24 Unknow n History Allergy/AdvReac Type Severity Reaction Status Date / Time morphine AdvReac Itching Verified 11/18/24 14:53 Surgical History H/O bilateral hip replacements Social History Smoking Status: Never smoker Physical Exam Const alert, oriented x3 and no apparent distress General Appearance: cooperative HEENT normocephalic and head/scalp atraumatic Eyes PERRL and EOMs intact bilaterally Neck supple and No nodes Resp Auscultation: rhonchi and wheezes Cardio regular rate and regular rhythm GI soft to palpation, non-tender and non-distended Extremity General Extremity: Negative for edema Skin no rashes or lesions noted Neuro CN's II-XII intact bilaterally Lab / Micro Data Attestation: I reviewed the patient's lab results. 11/20/24 06:28 11/20/24 06:28 Labs: Laboratory Results - last 24 hr 11/20/24 06:28: WBC 3.0 L, RBC 2.78 L, Hgb 8.9 L, Hct 27.7 L, MCV 99.6 H, MCH 32.0, MCHC 32.1, RDW Std Deviation 49.1 H, RDW Coeff of Cesar 13.4, Plt Count 118 L, MPV 12.1 H, Neut % (Auto) Not Reportable, Absolute Neuts (auto) 2.2, Absolute Lymphs (auto) 0.60 L, Total Counted 100, Neutrophils % (Manual) 73 H, Band Neutrophils % 1, Lymphocytes % (Manual) 20, Monocytes % (Manual) 5, Metamyelocytes % 1, Diff Path Review May foll, Platelet Estimate ADEQUATE, RBC Morphology NORM C+C, Sodium 138, Potassium 3.5, Chloride 103, Carbon Dioxide 20.3 L, Anion Gap 14, BUN 7, Creatinine 0.62 L, Estim Creat Clear Calc 94.33, Est GFR (MDRD) Non-Af 100, BUN/Creatinine Ratio 11.2, Glucose 130 H, Calcium 8.2 Micro: Microbiology 11/18/24 16:15 Urine, Clean Catch Urine Culture - Final Klebsiella pneumoniae sp pneum 11/18/24 Unknown Sputum, Expectorated/Coughed Gram Stain - Final
--- NOTE | 2024-11-20 14:31 | CASEMGMT ---
Discharge Planning referral sent to [facility]. Iza Ashraf DC Planning Asst.
--- NOTE | 2024-11-20 15:19 | CASEMGMT ---
Addendum entered by Renee Sandoval 11/20/24 15:59: SUNDAY LINDER into pt room, pt aware that she was declined for services from the 3 agencies. Pt states she has no preference, just to go with anyone who will take her. Referral sent to the rest of the agencies on the list: [facility], [facility], [facility], [facility], [facility], [facility], [facility] and [facility]. Addendum entered by Renee Sandoval 11/20/24 15:51: [facility] has declined pt for services. Addendum entered by Renee Sandoval 11/20/24 15:39: Received tc from Izzy at [facility] who states they recently dc'd pt and are not able to accept her currently. Referral sent to [facility] via careport. Updated dc assistant softball coach. Original Note: [facility] declined pt for services, referral sent to [facility] via careport and requested DC assistant softball coach follow with a tc for acceptance prior to end of day.
--- NOTE | 2024-11-20 17:31 | PCM.PN.HOSP ---
Reason for Visit Chief Complaint: Generalized weak Subjective Subjective Patient states she still feels very poorly overall. Still having intermittent fevers. Urine culture is sensitive to antimicrobials. Suspect this is more likely related to rhinovirus and anything else is going on from a pulmonary standpoint. Objective Data Objective Data Vital Signs: Vital Signs Temp Pulse Resp BP Pulse Ox O2 Del Method O2 Flow Rate 99.6 F H 90 20 H 140/80 H 97 Nasal Cannula 2 11/20/24 15:04 11/20/24 14:07 11/20/24 14:07 11/20/24 14:07 11/20/24 17:07 11/20/24 17:07 11/20/24 17:07 Oxygen Flow Rate (L/min) 2 Oxygen Delivery Method Nasal Cannula Weight: 78.8 kg Body Mass Index (BMI) 29.6 Intake & Output: Intake and Output for Last 24 Hours 11/18/24 11/19/24 11/20/24 23:59 23:59 23:59 Intake Total 950 / 950 3747.5 / 3747.5 350 / 350 Balance 950 / 950 3747.5 / 3747.5 350 / 350 Lab / Micro Data 11/20/24 06:28 11/20/24 06:28 Labs: Laboratory Results - last 24 hr 11/20/24 06:28: WBC 3.0 L, RBC 2.78 L, Hgb 8.9 L, Hct 27.7 L, MCV 99.6 H, MCH 32.0, MCHC 32.1, RDW Std Deviation 49.1 H, RDW Coeff of Cesar 13.4, Plt Count 118 L, MPV 12.1 H, Neut % (Auto) Not Reportable, Absolute Neuts (auto) 2.2, Absolute Lymphs (auto) 0.60 L, Total Counted 100, Neutrophils % (Manual) 73 H, Band Neutrophils % 1, Lymphocytes % (Manual) 20, Monocytes % (Manual) 5, Metamyelocytes % 1, Diff Path Review May , Platelet Estimate ADEQUATE, RBC Morphology NORM C+C, Sodium 138, Potassium 3.5, Chloride 103, Carbon Dioxide 20.3 L, Anion Gap 14, BUN 7, Creatinine 0.62 L, Estim Creat Clear Calc 94.33, Est GFR (MDRD) Non-Af 100, BUN/Creatinine Ratio 11.2, Glucose 130 H, Calcium 8.2 Micro: Microbiology 10/04/25 Unknown Sputum, Expectorated/Coughed Gram Stain - Final 11/18/24 Unknown Sputum, Expectorated/Coughed Respiratory Culture - Preliminary Haemophilus influenzae 11/18/24 16:15 Urine, Clean Catch Urine Culture - Final Klebsiella pneumoniae sp pneum 11/18/24 19:51 Mucosa - Nasopharyngeal Respiratory Panel (PCR) - Final Rhinovirus 11/18/24 19:51 Mucosa - Nose Coronavirus COVID-19 PCR - Final 11/18/24 16:15 Urine, Clean Catch Legionella Antigen - Final 11/18/24 16:15 Urine, Clean Catch Streptococcus pneumoniae Antigen (M - Final 11/18/24 15:40 Mucosa - Nose SARS-CoV-2, Influenza & RSV (PCR) - Final Physical Exam Const alert, oriented x3, no apparent distress and well nourished; Negative for healthy appearing Constitutional Narrative: Overweight, nontoxic but ill-appearing upper middle-aged, white female, appears comfortable, nontoxic HEENT head/scalp atraumatic and moist oral mucous membranes HEENT Narrative: No thrush Head and Scalp: normocephalic Resp Resp Narrative: Crackles at bases bilaterally with inspiratory and expiratory wheezes, significant bronchospasm with intermittent cough during and following deep breathing Auscultation: crackles and wheezes; Negative for rhonchi Cardio regular rate, regular rhythm, S1 normal heart sound, S2 normal heart sound, no rub, no gallops and no clicks; Negative for no murmurs Cardio Narrative: 2 out of 6 systolic murmur loudest at right upper sternal border GI normal to inspection, nondistended, normoactive bowel sounds, soft to palpation and non-tender Extremity no clubbing, cyanosis or edema Extremity Narrative: 2+ pedal and radial pulses Neuro moves all extremities and no focal motor deficits Neuro Narrative: Appears significantly fatigued with generalized weakness but no focal deficits Speech: speech normal Psych Psych Narrative: Affect is slightly flat but appropriate for current condition, eye contact is good and patient interacts appropriately Assessment & Plan Assessment/Plan (1) Rhinovirus: (2) Hypoxia: (3) Acute cystitis: (4) Pancytopenia: (5) Transaminitis: (6) Abnormal chest CT: (7) Toxic metabolic encephalopathy: PLAN: Plan Acute hypoxia secondary to rhinovirus infection/haemophilus influenza pneumonia - Patient also with abnormal CT suggestive of possible fungal etiology but could be all viral - Patient does have history of immunocompromise state due to previous treatment for non-Hodgkin's lymphoma - Fungal studies are pending--> monitor for results - Patient with positive rhinovirus and haemophilus influenza - Continue ceftriaxone and discontinue azithromycin -Patient with still ongoing fevers intermittently--> continue to watch fever curve - ID is following-appreciate input Klebsiella UTI - Continue ceftriaxone based on sensitivities - Will treat as compromise due to baseline immunocompromise state Toxic/metabolic encephalopathy - Resolved Pancytopenia - Recent baseline unknown - Will continue to monitor - Suspect probably related to viral infection but if do not improve may need oncology and put in possible bone marrow biopsy Abnormal chest CT - Noted as above - pulmonary studies are positive for rhinovirus and haemophilus influenza so likely the etiology of this Transaminitis - Mild - Suspect related to viral infection - Monitor periodically History of non-Hodgkin's lymphoma - Continue home acyclovir GERD - Continue home H2 martin - Continue PPI - Continue Carafate Essential hypertension - Hold home antihypertensives for now - Monitor blood pressure and restart accordingly Neuropathy - continue home gabapentin Depression/anxiety/PTSD - Continue home fluoxetine - Continue home trazodone - Continue home hydroxyzine - Continue home BuSpar DVT prophylaxis - Start subcu enoxaparin CODE STATUS - Full code Charges/Coding Visit Charges Inpatient E&M: 17351 Subs Hosp L2
[2024-11-20] MEDS: MELATONIN 3 MG TABLET PO (20:43)
[2024-11-21] VITALS (9 sets, daily range): BP systolic 123–157; BP diastolic 70–100; PULSE 83–100; RESP 18–20; TEMP 37.1–37.8; O2SAT 92–98; BMI 29.8
[2024-11-21 06:37] LABS: Hematocrit 25.6 % (37-47); Hemoglobin 8.6 g/dL (12.0-15.0); Mean Corp Hgb Conc 33.6 g/dL (32-36); Mean Corpuscular Volume 96.2 fL (81-99); Mean Platelet Vol. 11.8 fl (6.2-12.0); POSITIVE COUNT YES; POSITIVE DIFFERENTIAL YES; POSITIVE MORPHOLOGY YES; Platelet Count 145 K/mm3 (150-450); RBC Distribution Width CV 13.6 % (11.6-14.6); RBC Distribution Width SD 48.3 fl (35.1-43.9); Red Blood Count 2.66 M/mm3 (4.2-5.4); White Blood Count 3.0 K/mm3 (4.4-11.0)
[2024-11-21 06:38] LABS: Differential Indicated MANUAL DIFF
[2024-11-21 06:52] LABS: Anion Gap 11 (5-15); BUN 5 mg/dL (4-19); BUN/Creat Ratio 8.4 RATIO (10-20); Calcium,Total 8.4 mg/dL (7.6-11.0); Carbon Dioxide 23.7 mmol/L (21.0-32.0); Chloride 106 mmol/L (98-108); Estimated Creatinine Clearance 93.07 ml/min (50-250); Glucose 128 mg/dL (70-99); Potassium 3.4 mmol/L (3.3-5.1)
[2024-11-21 07:16] LABS: Neutrophil-Segmented 72 % (47-70); Total Cells Counted 100 (MANUAL DIFF)
[2024-11-21 07:17] LABS: Red Cell Morphology NORM C+C NORMAL (NORM C&C)
--- NOTE | 2024-11-21 07:28 | PN.HOSP_ITS ---
Reason for Visit Chief Complaint: Generalized weak Subjective Subjective Patient states she feels like she is coughing less than she was. States she is feeling a little bit better but still pretty talk it out. Overall seems to look better than she did yesterday. No specific complaints. I did ask her if she would like some cough syrup and she states that might help. Will order guaifenesin/codeine. Objective Data Objective Data Vital Signs: Vital Signs Temp Pulse Resp BP Pulse Ox O2 Del Method O2 Flow Rate 99.9 F H 100 18 157/79 H 94 Nasal Cannula 2 11/21/24 06:49 11/21/24 01:51 11/21/24 01:51 11/21/24 01:51 11/21/24 07:25 11/21/24 07:11/21/24 07:25 Oxygen Flow Rate (L/min) 2 Oxygen Delivery Method Nasal Cannula Weight: 79.2 kg Body Mass Index (BMI) 29.8 Intake & Output: Intake and Output for Last 24 Hours 11/19/24 11/20/24 11/21/24 23:59 23:59 23:59 Intake Total 3747.5 / 3747.5 350 / 350 Balance 3747.5 / 3747.5 350 / 350 Lab / Micro Data 11/21/24 06:13 11/21/24 06:13 Labs: Laboratory Results - last 24 hr 11/20/24 06:28: Absolute Neuts (auto) 2.2, Absolute Lymphs (auto) 0.60 L, Total Counted 100, Neutrophils % (Manual) 73 H, Band Neutrophils % 1, Lymphocytes % (Manual) 20, Monocytes % (Manual) 5, Metamyelocytes % 1, Diff Path Review June, Platelet Estimate ADEQUATE, RBC Morphology NORM C+C 11/21/24 06:13: WBC 3.0 L, RBC 2.66 L, Hgb 8.6 L, Hct 25.6 L, MCV 96.2, MCH 32.3 H, MCHC 33.6, RDW Std Deviation 48.3 H, RDW Coeff of Cesar 13.6, Plt Count 145 L, MPV 11.8, Neut % (Auto) Not Reportable, Absolute Neuts (auto) 2.2, Absolute Lymphs (auto) 0.78 L, Total Counted 100, Neutrophils % (Manual) 72 H, Lymphocytes % (Manual) 26, Monocytes % (Manual) 1, Eosinophils % (Manual) 1, Platelet Estimate ADEQUATE, RBC Morphology NORM C+C, Sodium 141, Potassium 3.4, Chloride 106, Carbon Dioxide 23.7, Anion Gap 11, BUN 5, Creatinine 0.63 L, Estim Creat Clear Calc 93.07, Est GFR (MDRD) Non-Af 100, BUN/Creatinine Ratio 8.4 L, G lucose 128 H, Calcium 8.4 Micro: Microbiology 11/18/24 Unknown Sputum, Expectorated/Coughed Gram Stain - Final 11/18/24 Unknown Sputum, Expectorated/Coughed Respiratory Culture - Preliminary Haemophilus influenzae 11/18/24 16:15 Urine, Clean Catch Urine Culture - Final Klebsiella pneumoniae sp pneum 11/18/24 19:51 Mucosa - Nasopharyngeal Respiratory Panel (PCR) - Final Rhinovirus 11/18/24 19:51 Mucosa - Nose Coronavirus COVID-19 PCR - Final 11/18/24 16:15 Urine, Clean Catch Legionella Antigen - Final 11/18/24 16:15 Urine, Clean Catch Streptococcus pneumoniae Antigen (M - Final 11/18/24 15:40 Mucosa - Nose SARS-CoV-2, Influenza & RSV (PCR) - Final Physical Exam Const alert, oriented x3, no apparent distress and well nourished; Negative for healthy appearing Constitutional Narrative: Overweight, nontoxic but ill-appearing upper middle-aged, white female, appears comfortable, nontoxic, sitting up in a chair at the bedside, currently on room air with no signs of respiratory distress HEENT head/scalp atraumatic and moist oral mucous membranes HEENT Narrative: Mallampati 2, no thrush Head and Scalp: normocephalic Resp normal respiratory effort, no retractions, no use of accessory muscles and No clear to auscultation bilaterally Resp Narrative: Very few scattered inspiratory and expiratory wheezes, breath sounds still coarse diffusely, on room air with no signs of respiratory distress Auscultation: crackles and wheezes; Negative for rhonchi Cardio regular rate, regular rhythm, S1 normal heart sound, S2 normal heart sound, no rub, no gallops and no clicks; Negative for no murmurs Cardio Narrative: 2 out of 6 systolic murmur loudest at right upper sternal border GI normal to inspection, nondistended, normoactive bowel sounds, soft to palpation and non-tender Extremity no clubbing, cyanosis or edema Extremity Narrative: 2+ pedal and radial pulses Neuro moves all extremities and no focal motor deficits Neuro Narrative: Still appears fatigued but less so than yesterday, still with generalized weakness but no focal deficits Speech: speech normal Psych affect normal Psych Narrative: Affect is good today, eye contact is good and patient interacts appropriately Assessment & Plan Assessment/Plan (1) Rhinovirus: (2) Hypoxia: (3) Acute cystitis: (4) Pancytopenia: (5) Transaminitis: (6) Abnormal chest CT: (7) Toxic metabolic encephalopathy: PLAN: Plan Acute hypoxia secondary to rhinovirus infection/haemophilus influenza pneumonia - Patient also with abnormal CT suggestive of possible fungal etiology but could be all viral - Patient does have history of immunocompromise state due to previous treatment for non-Hodgkin's lymphoma - Fungal studies remain pending--> monitor for results - Patient with positive rhinovirus and haemophilus influenza - Has been weaned to room air - Continue ceftriaxone day 3 of 7 - No fevers today thus far with Tmax yesterday being 101.2 - ID is following-appreciate input Klebsiella UTI - Continue ceftriaxone based on sensitivities day 3 of 10 for antibiotics - Will treat as complicated due to baseline immunocompromise state Pancytopenia - Recent baseline unknown - Will continue to monitor - White count stable, hemoglobin stable, platelet count recovering - Suspect probably related to viral infection but if do not improve may need oncology and put in possible bone marrow biopsy - At this point we will likely recommend outpatient follow-up Abnormal chest CT - Noted as above - pulmonary studies are positive for rhinovirus and haemophilus influenza so likely the etiology of this - Fungal studies are still pending Transaminitis - Mild - Suspect related to viral infection - Monitor periodically - Repeat lab in a.m. History of non-Hodgkin's lymphoma - Continue home acyclovir GERD - Continue home H2 martin - Continue PPI - Continue Carafate Essential hypertension - Hold home antihypertensives for now - Monitor blood pressure and restart accordingly Neuropathy - continue home gabapentin Depression/anxiety/PTSD - Continue home fluoxetine - Continue home trazodone - Continue home hydroxyzine - Continue home BuSpar DVT prophylaxis - Continue subcu heparin CODE STATUS - Full code Charges/Coding Visit Charges Inpatient E&M: 30558 Subs Hosp L2
[2024-11-21] MEDS: Ceftriaxone 2 GM in 0.9% Normal Saline (50mL MB+) 50 ML IV (09:52)
[2024-11-21] MEDS: 0.9% Saline Lock 10 ML Syringe IV ×3 (09:52→20:57)
[2024-11-21] MEDS: Fluticasone 0.05% 1 SPRAY NASAL.SRY NASAL ×2 (09:54→20:56)
--- NOTE | 2024-11-21 10:44 | PCM.PN.ID ---
Physical Exam Narrative Feeling slightly better, still cough and dyspnea with fatigue. No fever. Const alert and no apparent distress General Appearance: cooperative Resp Auscultation: wheezes and diminished lung sounds Cardio regular rate and regular rhythm GI soft to palpation, non-tender and non-distended Skin no rashes or lesions noted ID ID: Route of nutrition/ use of supplements: [] Nutritional Intake: [] IV Site: [] Sanders Catheter: [] Assessment & Plan Assessment/Plan (1) Rhinovirus: PLAN: CT showed some nodules and interstitial lung disease. Urine Ags neg. Sputum cx with H flu. UA minimal wbcs but ucx with heavy growth klebs pneumo. Fungal studies pending. Has h/o NHL in remission. Is lymphopenic here and wbc is stable this AM. Not on O2. Cont azithro/ceftriaxone for now. Will follow (2) Acute cystitis:
--- NOTE | 2024-11-21 13:12 | CASEMGMT ---
Pt has been accepted by [facility], the other agencies have declined. SUNDAY CM into pt room, pt is aware of accepting agencies and has chosen [facility]. Responses sent back to both agencies. Plan for dc tomorrow per rounds this morning with hospitalist.
[2024-11-21] MEDS: Furosemide 20 MG/2 ML VIAL IV (17:17)
--- NOTE | 2024-11-21 21:00 | NURSING ---
Patient requested night meds early with the request of PRN meds.
[2024-11-22] VITALS (7 sets, daily range): BP systolic 101–124; BP diastolic 58–84; PULSE 82–86; RESP 16–20; TEMP 37–37.5; O2SAT 88–97; BMI 29.9
[2024-11-22 08:35] LABS: Hematocrit 29.4 % (37-47); Hemoglobin 9.4 g/dL (12.0-15.0); Mean Corp Hgb Conc 32.0 g/dL (32-36); Mean Corpuscular Volume 99.0 fL (81-99); Mean Platelet Vol. 11.2 fl (6.2-12.0); POSITIVE COUNT YES; POSITIVE MORPHOLOGY YES; Platelet Count 171 K/mm3 (150-450); RBC Distribution Width CV 13.2 % (11.6-14.6); RBC Distribution Width SD 48.2 fl (35.1-43.9); Red Blood Count 2.97 M/mm3 (4.2-5.4); White Blood Count 3.3 K/mm3 (4.4-11.0)
[2024-11-22 08:36] LABS: Differential Indicated MANUAL DIFF
[2024-11-22 09:04] LABS: AST(SGOT) 59 U/L (<=31); Alanine Aminotransfer ALT/SGPT 52 U/L (<=34); Albumin, Serum 3.0 g/dL (3.4-4.8); Alkaline Phosphatase 96 U/L (35-104); Anion Gap 12 (5-15); BUN 6 mg/dL (4-19); BUN/Creat Ratio 9.7 RATIO (10-20); Calcium,Total 8.8 mg/dL (7.6-11.0); Carbon Dioxide 29.6 mmol/L (21.0-32.0); Chloride 101 mmol/L (98-108); Estimated Creatinine Clearance 93.30 ml/min (50-250); Globulin 2.8 g/dL (2.2-4.2); Glucose 118 mg/dL (70-99); Potassium 3.1 mmol/L (3.3-5.1)
[2024-11-22 09:12] LABS: Total Cells Counted 100 (MANUAL DIFF)
[2024-11-22 09:14] LABS: Neutrophil-Segmented 67 % (47-70)
[2024-11-22] MEDS: Fluticasone 0.05% 1 SPRAY NASAL.SRY NASAL ×2 (09:23→21:09)
[2024-11-22] MEDS: Ceftriaxone 2 GM in 0.9% Normal Saline (50mL MB+) 50 ML IV (09:25)
[2024-11-22] MEDS: 0.9% Saline Lock 10 ML Syringe IV ×2 (09:47→21:02)
[2024-11-22] MEDS: Potassium Chloride Oral Tablet 20 MEQ 60 MEQ PO (10:47)
[2024-11-22] MEDS: Azithromycin 500 MG in 0.9% Normal Saline (250mL Bag) 250 ML 250 MG IV (11:11)
--- NOTE | 2024-11-22 12:17 | CASEMGMT ---
Addendum entered by Renee Sandoval 11/22/24 14:55: Updated [facility] that pt is not dc'ing this date. Original Note: Pt does not qualify for home oxygen per ambulatory pox this date.
--- NOTE | 2024-11-22 13:16 | PN.HOSP_ITS ---
Reason for Visit Chief Complaint: Generalized weak Subjective Subjective Patient still states she is very rundown and tired. States her cough seems to be improving. Objective Data Objective Data Vital Signs: Vital Signs Temp Pulse Resp BP Pulse Ox O2 Del Method O2 Flow Rate 99.1 F 86 20 H 103/84 H 97 Nasal Cannula 2 11/22/24 09:31 11/22/24 09:31 11/22/24 09:31 11/22/24 09:31 11/22/24 09:31 11/22/24 09:57 11/22/24 10:40 Oxygen Flow Rate (L/min) 2 Oxygen Delivery Method Nasal Cannula Weight: 79.6 kg Body Mass Index (BMI) 29.9 Intake & Output: Intake and Output for Last 24 Hours 11/20/24 11/21/24 11/22/24 23:59 23:59 23:59 Intake Total 350 / 350 50 / 310 660 / 660 Balance 350 / 350 50 / 310 660 / 660 Lab / Micro Data 11/22/24 08:27 11/22/24 08:27 Labs: Laboratory Results - last 24 hr 11/22/24 08:27: WBC 3.3 L, RBC 2.97 L, Hgb 9.4 L, Hct 29.4 L, MCV 99.0, MCH 31.6, MCHC 32.0, RDW Std Deviation 48.2 H, RDW Coeff of Cesar 13.2, Plt Count 171, MPV 11.2, Neut % (Auto) Not Reportable, Absolute Neuts (auto) 2.2, Absolute Lymphs (auto) 0.76 L, Total Counted 100, Neutrophils % (Manual) 67, Lymphocytes % (Manual) 23, Monocytes % (Manual) 7, Eosinophils % (Manual) 1, Metamyelocytes % 2 H, Sodium 142, Potassium 3.1 L, Chloride 101, Carbon Dioxide 29.6, Anion Gap 12, BUN 6, Creatinine 0.63 L, Estim Creat Clear Calc 93.30, Est GFR (MDRD) Non- Af 100, BUN/Creatinine Ratio 9.7 L, Glucose 118 H, Calcium 8.8, Total Bilirubin 0.28, AST 59 H, ALT 52 H, Alkaline Phosphatase 96, Total Protein 5.8 L, Albumin 3.0 L, Globulin 2.8, Albumin/Globulin Ratio 1.0 Micro: Microbiology 11/18/24 Unknown Sputum, Expectorated/Coughed Gram Stain - Final 11/18/24 Unknown Sputum, Expectorated/Coughed Respiratory Culture - Final Haemophilus influenzae 11/18/24 16:15 Urine, Clean Catch Urine Culture - Final Klebsiella pneumoniae sp pneum 11/18/24 19:51 Mucosa - Nasopharyngeal Respiratory Panel (PCR) - Final Rhinovirus 11/18/24 19:51 Mucosa - Nose Coronavirus COVID-19 PCR - Final 11/18/24 16:15 Urine, Clean Catch Legionella Antigen - Final 11/18/24 16:15 Urine, Clean Catch Streptococcus pneumoniae Antigen (M - Final 11/18/24 15:40 Mucosa - Nose SARS-CoV-2, Influenza & RSV (PCR) - Final Physical Exam Const alert, oriented x3, no apparent distress and well nourished; Negative for healthy appearing Constitutional Narrative: Overweight, nontoxic but ill-appearing upper middle-aged, white female, appears comfortable, nontoxic, lying in bed, currently on 2 L nasal cannula with no signs of respiratory distress HEENT head/scalp atraumatic and moist oral mucous membranes HEENT Narrative: No thrush, Mallampati 2 Resp normal respiratory effort, no retractions, no use of accessory muscles and No clear to auscultation bilaterally Resp Narrative: Coarse breath sounds diffusely with few scattered inspiratory and expiratory wheezes Auscultation: crackles and wheezes; Negative for rhonchi Cardio regular rate, regular rhythm, S1 normal heart sound, S2 normal heart sound, no rub, no gallops and no clicks; Negative for no murmurs Cardio Narrative: 2 out of 6 systolic murmur loudest at right upper sternal border GI normal to inspection, nondistended, normoactive bowel sounds, soft to palpation and non-tender Extremity no clubbing, cyanosis or edema Extremity Narrative: 2+ pedal and radial pulses Neuro moves all extremities and no focal motor deficits Neuro Narrative: Appears quite fatigued today with significant generalized weakness but no focal deficits Speech: speech normal Psych Psych Narrative: Affect is flat but appropriate for the situation, patient interacts appropriately and is appreciative of care Assessment & Plan Assessment/Plan (1) Rhinovirus: (2) Hypoxia: (3) Acute cystitis: (4) Pancytopenia: (5) Transaminitis: (6) Abnormal chest CT: (7) Toxic metabolic encephalopathy: PLAN: Plan Acute hypoxia secondary to rhinovirus infection/haemophilus influenza pneumonia - Patient also with abnormal CT suggestive of possible fungal etiology but could be all viral - Patient does have history of immunocompromise state due to previous treatment for non-Hodgkin's lymphoma -Patient states she gets IgG treatment awaiting input from infectious disease and she if he feels she may benefit from an infusion She states she is overdue- - Fungal studies remain pending--> monitor for results - Fluctuates between 0 oxygen and requirement and 2 L - Continue ceftriaxone day 4 of 7 -Continue azithromycin -Tmax in the last 24 hours was 100 degrees - ID is following-appreciate input Klebsiella UTI - Continue ceftriaxone based on sensitivities day 4 of 10 for antibiotics - Will treat as complicated due to baseline immunocompromise state Pancytopenia - Recent baseline unknown - Will continue to monitor - White count stable, hemoglobin stable, platelet count has recovered Abnormal chest CT - Noted as above - pulmonary studies are positive for rhinovirus and haemophilus influenza so likely the etiology but other studies are pending - Fungal studies are still pending Transaminitis - Mild and improving - Suspect related to viral infection - Monitor periodically - Repeat lab in a.m. History of non-Hodgkin's lymphoma - Continue home acyclovir GERD - Continue home H2 martin - Continue PPI - Continue Carafate Essential hypertension - Hold home antihypertensives for now - Monitor blood pressure and restart accordingly Neuropathy - continue home gabapentin Depression/anxiety/PTSD - Continue home fluoxetine - Continue home trazodone - Continue home hydroxyzine - Continue home BuSpar DVT prophylaxis - Continue subcu heparin CODE STATUS - Full code Charges/Coding Visit Charges Inpatient E&M: 79189 Subs Hosp L2
--- NOTE | 2024-11-22 13:51 | PCM.PN.ID ---
Physical Exam Narrative Still not feeling well but slow improvement in cough/dyspnea. No fever, no n/v/d. Const alert and no apparent distress General Appearance: cooperative Resp Auscultation: diminished lung sounds Cardio regular rate and regular rhythm GI soft to palpation, non-tender and non-distended Skin no rashes or lesions noted ID ID: Route of nutrition/ use of supplements: [] Nutritional Intake: [] IV Site: [] Sanders Catheter: [] Assessment & Plan Assessment/Plan (1) Rhinovirus: PLAN: CT showed some nodules and interstitial lung disease. Urine Ags neg. Sputum cx with H flu. UA minimal wbcs but ucx with heavy growth klebs pneumo. Fungal studies pending. Has h/o NHL in remission. Cont azithro/ceftriaxone for now. Plan on short course po abx at discharge. Will follow (2) Acute cystitis:
[2024-11-22] MEDS: hydrOXYzine PAM 25 MG Capsule PO (14:51)
[2024-11-22] MEDS: MELATONIN 3 MG TABLET PO (21:05)
[2024-11-23 03:19] VITALS: BP 123/66; PULSE 77; RESP 18; TEMP 37.3; O2SAT 97
[2024-11-23 06:00] VITALS: BMI 29.5
[2024-11-23 06:28] LABS: Hematocrit 27.2 % (37-47); Hemoglobin 8.8 g/dL (12.0-15.0); Mean Corp Hgb Conc 32.4 g/dL (32-36); Mean Corpuscular Volume 99.6 fL (81-99); Mean Platelet Vol. 12.0 fl (6.2-12.0); POSITIVE COUNT YES; POSITIVE DIFFERENTIAL YES; POSITIVE MORPHOLOGY YES; Platelet Count 140 K/mm3 (150-450); RBC Distribution Width CV 13.3 % (11.6-14.6); RBC Distribution Width SD 48.6 fl (35.1-43.9); Red Blood Count 2.73 M/mm3 (4.2-5.4); White Blood Count 2.5 K/mm3 (4.4-11.0)
[2024-11-23 06:49] LABS: AST(SGOT) 58 U/L (<=31); Alanine Aminotransfer ALT/SGPT 50 U/L (<=34); Albumin, Serum 2.8 g/dL (3.4-4.8); Alkaline Phosphatase 86 U/L (35-104); Anion Gap 10 (5-15); BUN 6 mg/dL (4-19); BUN/Creat Ratio 9.9 RATIO (10-20); Calcium,Total 8.6 mg/dL (7.6-11.0); Carbon Dioxide 27.6 mmol/L (21.0-32.0); Chloride 104 mmol/L (98-108); Estimated Creatinine Clearance 104.18 ml/min (50-250); Globulin 2.6 g/dL (2.2-4.2); Glucose 119 mg/dL (70-99); Magnesium 1.9 mg/dL (1.5-2.2); Potassium 3.5 mmol/L (3.3-5.1)
[2024-11-23 07:12] VITALS: O2SAT 96
[2024-11-23 08:04] LABS: Neutrophil-Band 1 % (0-5); Neutrophil-Segmented 58 % (47-70); Total Cells Counted 100 (MANUAL DIFF)
[2024-11-23 08:06] LABS: Differential Indicated MANUAL DIFF
[2024-11-23 08:10] LABS: Red Cell Morphology NORM C+C NORMAL (NORM C&C)
[2024-11-23 08:20] VITALS: BP 139/74; PULSE 83; RESP 18; TEMP 37.2; O2SAT 96
[2024-11-23] MEDS: Ceftriaxone 2 GM in 0.9% Normal Saline (50mL MB+) 50 ML IV (08:27)
[2024-11-23] MEDS: Fluticasone 0.05% 1 SPRAY NASAL.SRY NASAL (08:28)
[2024-11-23] MEDS: Azithromycin 500 MG in 0.9% Normal Saline (250mL Bag) 250 ML 250 MG IV (10:24)
--- NOTE | 2024-11-23 10:33 | PCM.PN.ID ---
Physical Exam Narrative Sleeping this AM, no fever, no events overnight Const no apparent distress Resp clear to auscultation bilaterally Auscultation: diminished lung sounds Cardio regular rate and regular rhythm GI soft to palpation, non-tender and non-distended Skin no rashes or lesions noted ID ID: Route of nutrition/ use of supplements: [] Nutritional Intake: [] IV Site: [] Sanders Catheter: [] Assessment & Plan Assessment/Plan (1) Rhinovirus: PLAN: CT showed some nodules and interstitial lung disease. Urine Ags neg. Sputum cx with H flu. UA minimal wbcs but ucx with heavy growth klebs pneumo. Fungal studies pending. Has h/o NHL in remission. Cont azithro/ceftriaxone for now. Plan on short course po abx at discharge. Will follow (2) Acute cystitis:
[2024-11-23 11:45] VITALS: O2SAT 92; O2SAT 95
[2024-11-23 13:52] VITALS: BP 113/91; PULSE 83; RESP 18; TEMP 36.9; O2SAT 94
--- NOTE | 2024-11-23 14:46 | PCM.DC.SUM ---
Providers Date of Admission: 11/18/24 Date of Discharge: 11/23/24 Primary Care Physician: ORALIA SANABRIA DO Consultations 11/18/24 19:17 Consult: Infectious Disease Routine Consulting Provider: Nir Taylor Reason for Consult: Atypical pneumonia EMERGENT Consult: No MD Notified: Yes Date Notified: 11/20/24 Time Notified: 06:21 Method of Notification: Text Reason For Visit: ACUTE METABOLIC ENCEPHALOPATHY AND UTI Diagnosis Discharge Diagnosis (1) Rhinovirus: Status: Acute Code(s): B34.8 - Other viral infections of unspecified site (2) Acute cystitis: Status: Acute Code(s): N30.00 - Acute cystitis without hematuria Medications at Discharge Home Medications hydrochlorothiazide 12.5 mg tablet 12.5 mg PO BID bp 08/23/20 Held on 11/23/24. Instructions: Until told to restart hydroxyzine pamoate 25 mg capsule (Vistaril) 25 mg PO BID PRN Anxiety 08/23/20 lisinopril 40 mg tablet 40 mg PO DAILY 08/23/20 Held on 11/23/24. Instructions: Until follow-up with primary care physician pantoprazole 40 mg tablet,delayed release 40 mg PO DAILY 08/23/20 acyclovir 400 mg tablet 400 mg PO Q12.TCU 11/18/24 albuterol sulfate 90 mcg/actuation aerosol inhaler 2 puff inhalation Q4H PRN PRN wheezing 11/18/24 buspirone 15 mg tablet 15 mg PO 4X/DAY Anxiety 11/18/24 clonazepam 0.5 mg tablet 0.5 mg PO TID anxiety 11/18/24 dicyclomine 20 mg tablet 20 mg PO 4X/DAY 11/18/24 famotidine 20 mg tablet 20 mg PO BID GERD 11/18/24 fluoxetine 40 mg capsule 80 mg PO DAILY PTSD 11/18/24 fluticasone propionate 50 mcg/actuation nasal spray,suspension 1 spray intranasal Q12H allergies 11/18/24 gabapentin 600 mg tablet 600 mg PO TID 11/18/24 sucralfate 1 gram tablet 1 g PO 4X/DAY 11/18/24 trazodone 50 mg tablet 50 mg PO QHS 11/18/24 acetaminophen 325 mg tablet 650 mg (2 x 325 mg) PO Q6H PRN PRN Pain 1-10 Or Fever >100.7 #0 tabs 11/23/24 codeine 10 mg-guaifenesin 100 mg/5 mL oral liquid 5 ml PO Q6H PRN PRN COUGH/CONGESTION #118 mL 11/23/24 levofloxacin 750 mg tablet 750 mg PO DAILY #3 tabs 11/23/24 prednisone 10 mg tablet 10 mg PO DAILY #30 tabs 11/23/24 Hospital Course Operations None Procedures - (CT brain/CTA chest) Summary of Care Provided Minutes Spent on Discharge: 40 Hospital Course: Ms. Leon is a 63-year-old white female who presented to the emergency department at [facility] on 11/18/2024 with a chief complaint of generalized weakness. Patient has a history of non-Hodgkin's lymphoma and IgG deficiency. Lymphoma is currently in remission. She was recently evaluated in [place] for an upper respiratory infection and seen in the emergency department and sent home on Zithromax however she not really recovered since she was evaluated. She reported worsening weakness and some shortness of breath along with subjective fever and chills. Vital signs on presentation showed temperature of 98.3, heart rate 80, respiratory is 18, blood pressure was 105/92 and pulse ox was 94% on room air. She did eventually desat and required supplemental oxygen during her hospital course. CBC showed pancytopenia. Chemistry panel was overtly unremarkable. She did have mild transaminitis with an AST of 119 and ALT of 62. Alk phos was normal. Troponin was unremarkable. UA was somewhat suggestive of infection. Cultures were sent. CT of the brain was unremarkable other than showing some maxillary sinusitis. CTA of the chest was negative for pulmonary emboli but did have abnormal micronodular pattern with interstitial prominence throughout the lungs consistent with infection. Given her respiratory symptoms and abnormal UA she was admitted to medical floor and started on antibiotics with ceftriaxone and azithromycin after cultures were obtained. Respiratory viral panel was also obtained. She was found to be positive for rhinovirus. We were able to obtain a sputum culture ultimately which showed haemophilus influenza. Fungal titers were sent and pending at the time of discharge. Clinically the patient had significant wheezing and very coarse breath sounds throughout her entire stay. She has a lifelong history of non-smoking per her report. She was followed by infectious disease during her hospitalization. By 11/23/2024 she appeared to be improving clinically. She was able to be weaned off oxygen and assessed on room air at rest and with exertion. Ambulatory pulse ox showed that her sats were 92% with exertion and she would not need oxygen at discharge. I did discuss the case with infectious disease and they felt discharging her Levaquin was a good option as it would cover her urine to complete treatment and her pulmonary cultures thus far. We will go ahead and keep an eye on her fungal titers to ensure that they are negative. Patient does receive IgG infusions and she was encouraged to keep that appointment next week. We also placed her on prednisone for a short course given her coarse breath sounds to decrease inflammation. Patient was sent home with prescriptions for Levaquin for another 3 days and a tapering course of prednisone. She was discharged home in stable condition on 11/23/2024. Have asked that she follow-up with her primary care physician within the next week. She was pancytopenic during hospital course and likely needs a repeat BMP once her acute illness has resolved to ensure resolution of the abnormalities noted. Discharge diagnoses: Acute hypoxia Rhinovirus pneumonia Haemophilus influenza pneumonia Klebsiella pneumoniae UTI Pancytopenia Abnormal CT of the chest Transaminitis-improving and suspect related to viral infection History of non-Hodgkin's lymphoma GERD Essential hypertension Neuropathy Depression Anxiety PTSD Physical Exam Const alert, oriented x3, no apparent distress, no limitations and well nourished; Negative for healthy appearing Constitutional Narrative: Overweight, upper middle-aged, white female, sitting up in a chair at the bedside, appears comfortable, looks as if she is feeling better overall, does not look toxic, appears mildly fatigued General Appearance: cooperative, comfortable, well kempt and well developed Exam Limitations: no limitations Nutritional Appearance: overweight HEENT normocephalic, head/scalp atraumatic, hearing grossly normal bilaterally and moist oral mucous membranes HEENT Narrative: No thrush, Mallampati 2 Eyes Negative for conjunctivae normal Eyes Narrative: Mildly pale conjunctiva bilaterally, no scleral icterus Neck supple Neck Narrative: Trachea midline Resp normal respiratory effort, no retractions, no use of accessory muscles and No clear to auscultation bilaterally Resp Narrative: Coarse breath sounds at bases greater than apices, wheezing has resolved, good air movement Auscultation: crackles; Negative for rhonchi or wheezes Cardio regular rate, regular rhythm, S1 normal heart sound, S2 normal heart sound, no rub, no gallops and no clicks; Negative for no murmurs Cardio Narrative: 2 out of 6 systolic murmur loudest at right upper sternal border GI normal to inspection, nondistended, normoactive bowel sounds, soft to palpation and non-tender Extremity no clubbing, cyanosis or edema Extremity Narrative: 2+ pedal and radial pulses Skin no jaundice, no petechiae and no mottling Neuro moves all extremities and no focal motor deficits Neuro Narrative: Mild generalized weakness, much less fatigue Speech: speech normal Psych affect normal Psych Narrative: Pleasant, interacts appropriately Weight / BMI Weight Weight: 78.4 kg Body Mass Index (BMI) 29.5 ABG / Lab / Microbiology Data 11/23/24 06:15 11/23/24 06:15 Laboratory: Laboratory Results - last 24 hr 11/23/24 06:15: WBC 2.5 L, RBC 2.73 L, Hgb 8.8 L, Hct 27.2 L, MCV 99.6 H, MCH 32.2 H, MCHC 32.4, RDW Std Deviation 48.6 H, RDW Coeff of Cesar 13.3, Plt Count 140 L, MPV 12.0, Neut % (Auto) Not Reportable, Absolute Neuts (auto) 1.5 L, Absolute Lymphs (auto) 0.55 L, Total Counted 100, Neutrophils % (Manual) 58, Band Neutrophils % 1, Lymphocytes % (Manual) 22, Monocytes % (Manual) 17 H, Eosinophils % (Manual) 2, Platelet Estimate ADEQUATE, RBC Morphology NORM C+C, Sodium 141, Potassium 3.5, Chloride 104, Carbon Dioxide 27.6, Anion Gap 10, BUN 6, Creatinine 0.56 L, Estim Creat Clear Calc 104.18, Est GFR (MDRD) Non-Af 103, BUN/Creatinine Ratio 9.9 L, Glucose 119 H, Calcium 8.6, Phosphorus 3.9, Magnesium 1.9, Total Bilirubin 0.23, AST 58 H, ALT 50 H, Alkaline Phosphatase 86, Total Protein 5.4 L, Albumin 2.8 L, Globulin 2.6, Albumin/Globulin Ratio 1.1 Microbiology: Microbiology 11/18/24 Unknown Sputum, Expectorated/Coughed Gram Stain - Final 11/18/24 Unknown Sputum, Expectorated/Coughed Respiratory Culture - Final Haemophilus influenzae 11/18/24 16:15 Urine, Clean Catch Urine Culture - Final Klebsiella pneumoniae sp pneum 11/18/24 19:51 Mucosa - Nasopharyngeal Respiratory Panel (PCR) - Final Rhinovirus 11/18/24 19:51 Mucosa - Nose Coronavirus COVID-19 PCR - Final 11/18/24 16:15 Urine, Clean Catch Legionella Antigen - Final 11/18/24 16:15 Urine, Clean Catch Streptococcus pneumoniae Antigen (M - Final 11/18/24 15:40 Mucosa - Nose SARS-CoV-2, Influenza & RSV (PCR) - Final D/C Instructions Discharge Activity: Return to Normal Activity (Ease slowly back into regular activity) Return to work on: 11/27/24 DC O2, CPAP, BIPAP Needs Home O2 Discharge instructions: No DC home with Oxygen: No Meaningful Use Info Meaningful Use Meaningful Use Diagnoses (Choose all that apply): None applicable Discharge Plan Admission Admit Date/Time: 11/18/24 17:55 Primary Reason for Your Visit: Generalized weakness Attending Provider: Quiana Diane Primary Care Provider: ORALIA SANABRIA Consulting Providers: Nir Taylor; Johnny Reyes Instructions Additional Instructions / Restrictions: 1. Please continue your incentive spirometer and Acapella at least 3-4 times a day while you are awake after discharge 2. Please complete antibiotics as instructed 3. Please complete prednisone as ordered 4. Please take it easy and slowly move back into a regular routine Discharge Orders/Prescriptions Prescriptions: New acetaminophen 325 mg Tablet 650 mg PO Q6H PRN PRN (Reason: Pain 1-10 Or Fever >100.7) Qty: 0 0RF codeine-guaifenesin 10-100 mg/5 mL Liquid 5 ml PO Q6H PRN PRN (Reason: COUGH/CONGESTION) Qty: 118 0RF prednisone 10 mg tablet 10 mg PO DAILY Qty: 30 0RF Rx Instructions: 4 tablets x 3 days, 3 tablets x 3 days, 2 tablets x 3 days, 1 tablet x 3 days and stop levofloxacin 750 mg tablet 750 mg PO DAILY Qty: 3 0RF Continued pantoprazole 40 mg Tablet,Delayed Release (Dr/Ec) 40 mg PO DAILY hydroxyzine pamoate [Vistaril] 25 mg Capsule 25 mg PO BID PRN (Reason: Anxiety) acyclovir 400 mg tablet 400 mg PO Q12.TCU albuterol sulfate 90 mcg/actuation HFA aerosol inhaler 2 puff INHALATION Q4H PRN PRN (Reason: wheezing) buspirone 15 mg tablet 15 mg PO 4X/DAY fluoxetine 40 mg capsule 80 mg PO DAILY gabapentin 600 mg tablet 600 mg PO TID sucralfate 1 gram tablet 1 g PO 4X/DAY clonazepam 0.5 mg tablet 0.5 mg PO TID famotidine 20 mg tablet 20 mg PO BID dicyclomine 20 mg tablet 20 mg PO 4X/DAY fluticasone propionate 50 mcg/actuation spray,suspension 1 spray INTRANASAL Q12H Patient Comments: PLEASE SEE ATTACHED FOR DETAILED DIRECTIONS trazodone 50 mg tablet 50 mg PO QHS Held hydrochlorothiazide 12.5 mg Tablet 12.5 mg PO BID Hold Instructions: Until told to restart lisinopril 40 mg Tablet 40 mg PO DAILY Hold Instructions: Until follow-up with primary care physician Referrals / Follow Up: ORALIA SANABRIA DO [Primary Care Provider, Medical] - Within 1 Week Ziyad Rossi MD [Med Staff - Active Staff, Orthopedics] Disposition Disposition (needs filled in before D/C Order can be placed): Home, Self Care Charges/Coding Visit Charges Inpatient E&M: 87652 Disch Hosp >30min
--- NOTE | 2024-11-23 15:27 | CASEMGMT ---
Addendum entered by Sherwin Garza 11/23/24 15:31: Discharge instructions and summary sent to [facility] via [employer]. Original Note: SUNDAY LINDER NOTE: Discharge order is in. RN KAILASH to room. Pt resting in bed. Introduced self and role. Pt aware discharge order is in and she states she is ready to go home. Her boyfriend will be taking her home. She is aware Rx's have been sent to [facility] and she has already made arrangements for her sister to pick them up. She was made aware [facility] should be calling her w/in 24-48 hrs of discharge to arrange for SOC. She voices appreciation. She is also aware to f/u with PCP w/in 1 week. She denies having any questions or concerns. Darnell STEPHEN RN, CM
--- NOTE | 2024-11-23 15:56 | PHA.DC_ITS ---
Pharmacy [facility] has performed discharge medication counseling for this patient. The patient was counseled on the following discharge medications and changes in medications for homegoing review. - Codeine-guaifenesin 10mg/100mL liquid, Levofloxacin 750 mg tablet, Prednisone 10 mg tablet (taper) The Reason for Use, instructions for use, and potential side effects were reviewed for all new medications. The patient's questions regarding all of their medications were answered. The patient was able to verbally demonstrate an understanding of their discharge medications. Medications at Discharge Home Medications hydrochlorothiazide 12.5 mg tablet 12.5 mg PO BID bp 08/23/20 Held on 11/23/24. Instructions: Until told to restart hydroxyzine pamoate 25 mg capsule (Vistaril) 25 mg PO BID PRN Anxiety 08/23/20 lisinopril 40 mg tablet 40 mg PO DAILY 08/23/20 Held on 11/23/24. Instructions: Until follow-up with primary care physician pantoprazole 40 mg tablet,delayed release 40 mg PO DAILY 08/23/20 acyclovir 400 mg tablet 400 mg PO Q12.TCU 11/18/24 albuterol sulfate 90 mcg/actuation aerosol inhaler 2 puff inhalation Q4H PRN PRN wheezing 11/18/24 buspirone 15 mg tablet 15 mg PO 4X/DAY Anxiety 11/18/24 clonazepam 0.5 mg tablet 0.5 mg PO TID anxiety 11/18/24 dicyclomine 20 mg tablet 20 mg PO 4X/DAY 11/18/24 famotidine 20 mg tablet 20 mg PO BID GERD 11/18/24 fluoxetine 40 mg capsule 80 mg PO DAILY PTSD 11/18/24 fluticasone propionate 50 mcg/actuation nasal spray,suspension 1 spray intranasal Q12H allergies 11/18/24 gabapentin 600 mg tablet 600 mg PO TID 11/18/24 sucralfate 1 gram tablet 1 g PO 4X/DAY 11/18/24 trazodone 50 mg tablet 50 mg PO QHS 11/18/24 acetaminophen 325 mg tablet 650 mg (2 x 325 mg) PO Q6H PRN PRN Pain 1-10 Or Fever >100.7 #0 tabs 11/23/24 codeine 10 mg-guaifenesin 100 mg/5 mL oral liquid 5 ml PO Q6H PRN PRN COUGH/CO NGESTION #118 mL 11/23/24 levofloxacin 750 mg tablet 750 mg PO DAILY #3 tabs 11/23/24 prednisone 10 mg tablet 10 mg PO DAILY #30 tabs 11/23/24
[2024-11-23 17:08] LABS: Mycoplasma pneum. AB IgM < 770 U/mL (0-769)
== END 2024-11-23 16:10 | disposition home or self-care (01) | DRG 194 ==
LOC: ED 15:55 → MS3 18:28
PROVIDERS: Admitting Provider Internal Medicine; Emergency Provider Emergency Medicine; PCP Family Medicine; Visit Provider Internal Medicine
DX: J14 Pneumonia due to Hemophilus influenzae (principal); D61.818 Other pancytopenia; D84.821 Immunodeficiency due to drugs; J84.9 Interstitial pulmonary disease, unspecified; N30.00 Acute cystitis without hematuria; D69.6 Thrombocytopenia, unspecified; B96.1 Klebsiella pneumoniae [K. pneumoniae] as the cause of diseases classified elsewhere; I10 Essential (primary) hypertension; F32.A Depression, unspecified; F41.8 Other specified anxiety disorders; K21.9 Gastro-esophageal reflux disease without esophagitis; G62.9 Polyneuropathy, unspecified; J12.89 Other viral pneumonia; R29.6 Repeated falls; B97.89 Other viral agents as the cause of diseases classified elsewhere; R74.01 Elevation of levels of liver transaminase levels; F43.10 Post-traumatic stress disorder, unspecified; R09.02 Hypoxemia; E66.3 Overweight; Z85.72 Personal history of non-Hodgkin lymphomas; Z79.899 Other long term (current) drug therapy; Z68.29 Body mass index [BMI] 29.0-29.9, adult
CPT/HCPCS: 36415; 70450; 71275; 80048; 80053; 80076; 81001; 83605; 83735; 84100; 84443; 84484; 85025; 86698; 86738; 87070; 87077; 87086; 87088; 87186; 87205; 87449; 87631; 87633; 87635; 87899; 93005; 94640; 94668; 97110; 97162; 97166; 97530; 97535; 97802; 99252; 99284; Q9967; A4216; G0463; J0696; J1938; J2405